=== PATIENT | male | born 1950 | race American Indian/Alaskan Native ===

== ENCOUNTER 2016-09-01 08:18 | Emergency (ER) | payer MEDICARE ==
[2016-09-01 09:29] LABS: Basophils % (Auto) 0.2 % (0.0-1.8); Eosinophils % (Auto) 0.6 % (0.0-4.3); Hematocrit 42.5 % (35.5-45.6); Mean Corpuscular HGB Conc 33 % (32-34); Mean Corpuscular Hemoglobin 31 pg (28-32); Mean Corpuscular Volume 93 fl (84-94); Platelet Count 116 K/mm3 (140-440); Red Blood Count 4.56 M/mm3 (3.65-5.03); Red Cell Distribution Width 13.9 % (13.2-15.2); White Blood Count 7.1 K/mm3 (4.5-11.0)
[2016-09-01 09:35] LABS: Anion Gap 18 mmol/L; Blood Urea Nitrogen 13 mg/dL (9-20); Carbon Dioxide 26 mmol/L (22-30); Chloride 102.4 mmol/L (98-107); Glucose 90 mg/dL (75-100); Potassium 3.6 mmol/L (3.6-5.0); Sodium 143 mmol/L (137-145)
--- NOTE | 2016-09-01 10:18 | XRay Report ---
AP CHEST: HISTORY: Cough, fever AP view of the chest demonstrates a normal mediastinal and cardiac contour with clear lungs and normal bony and soft tissue structures. IMPRESSION: Unremarkable AP chest.
[2016-09-01] MEDS ORDERED: DUONEB 0.5 MG-3 MG/3 ML SOLN IH ONE (10:53)
[2016-09-01] MEDS ORDERED: TYLENOL PO ONE (10:54)
[2016-09-01] MEDS ORDERED: CATAPRES PO ONE (10:54)
[2016-09-01] MEDS ORDERED: APRESOLINE IV ONE (10:56)
--- NOTE | 2016-09-01 10:56 | Emergency Department Report ---
HPI - General Chief Complaint: Dyspnea/Respdistress Time Seen by Provider: 09/01/16 10:44 - HPI HPI: This is a 65-year-old Afro-[place] male who presents to the emergency department via EMS from his ECF with complaint of waking up with chills and shivering and a cough. The patient feels like he has some chest congestion but is unable to cough up anything. He denies any chest pain, nausea, vomiting, shortness of breath. He has a history of COPD but is not oxygen dependent all the time. He also has a history of CVA, dementia, hypertension, schizophrenia. His primary care doctor is Dr. Gene Lopez. He did not take anything and was not given anything for symptoms prior to presentation. No recent travel. ED Past Medical Hx - Past Medical History Previous Medical History?: Yes Hx Hypertension: Yes Hx CVA: Yes Hx Pulmonary Embolism: No Hx Headaches / Migraines: No Hx Seizures: No Hx Psychiatric Treatment: Yes (Schizophrenia) Hx Asthma: No Hx COPD: Yes Hx Tuberculosis: No Hx Dementia: Yes - Surgical History Past Surgical History?: Yes Additional Surgical History: Unknown - Social History Smoking Status: Current Every Day Smoker Substance Use Type: None - Medications Home Medications: Home Medications Medication Instructions Recorded Confirmed Last Taken Type Divalproex ER [Depakote ER] 750 mg PO QHS 07/30/14 09/01/16 11/02/14 History traZODone [Desyrel] 50 mg PO QHS 01/05/15 09/01/16 11/02/14 History Gabapentin [Neurontin] 300 mg PO QPM #30 capsule 03/31/15 09/01/16 Unknown Rx Aspirin [Aspirin BABY CHEW TAB] 81 mg PO QDAY 02/11/16 09/01/16 Unknown History Atenolol [Tenormin] 50 mg PO BID 02/11/16 09/01/16 Unknown History Cetirizine HCl [Allergy] 10 mg PO QDAY 02/11/16 09/01/16 Unknown History Diltiazem [Cardizem] 90 mg PO QDAY 02/11/16 09/01/16 Unknown History Simvastatin [Zocor TAB] 20 mg PO QHS 02/11/16 09/01/16 Unknown History risperiDONE [RisperDAL] 4 mg PO QHS 02/11/16 09/01/16 Unknown History Aspirin EC [Aspirin Enteric Coated 81 mg PO QDAY #30 tablet.dr 02/12/16 Unknown Rx TAB] Benztropine [Cogentin] 1 mg PO QHS tablet 02/12/16 09/01/16 Unknown Rx Lactobacillus Acidophil [Lactinex] 1 each PO TID tab.chew 02/12/16 09/01/16 Unknown Rx amLODIPine [Norvasc] 10 mg PO DAILY tablet 02/12/16 09/01/16 Unknown Rx risperiDONE [RisperDAL] 2 mg PO QHS tablet 02/12/16 09/01/16 Unknown Rx ED Review of Systems ROS: Stated complaint: CHILLS/SHIVERING Other details as noted in HPI Comment: All other systems reviewed and negative Constitutional: chills, fever Eyes: denies: eye pain, eye discharge, vision change ENT: denies: ear pain, throat pain Respiratory: cough. denies: shortness of breath Cardiovascular: denies: chest pain, palpitations Gastrointestinal: denies: abdominal pain, nausea, diarrhea Genitourinary: denies: urgency, dysuria Musculoskeletal: denies: back pain, joint swelling, arthralgia Skin: denies: rash, lesions Neurological: denies: headache, weakness, paresthesias Physical Exam - Physical Exam Vital Signs: Vital Signs 09/01/16 08:39 Temperature 100.6 F H Pulse Rate 66 Respiratory 18 Rate Blood Pressure 175/101 O2 Sat by Pulse 92 Oximetry Physical Exam: GENERAL: The patient is well-developed well-nourished. HEENT: Normocephalic. Atraumatic. Extraocular motions are intact. Patient has moist mucous membranes. Pupils equal reactive to light bilaterally. Oropharynx is clear without tonsillar hypertrophy, erythema or exudates. NECK: Supple. Trachea is midline. CHEST/LUNGS: Clear to auscultation. No cough heard during examination. There is no respiratory distress noted. HEART/CARDIOVASCULAR: Regular. There is no tachycardia. There is no gallop rub or murmur. ABDOMEN: Abdomen is soft, nontender. Patient has normal bowel sounds. There is no abdominal distention. SKIN: Skin is warm and dry. NEURO: The patient is awake, alert. The patient is cooperative. The patient has no focal neurologic deficits. The patient has normal speech. MUSCULOSKELETAL: There is no tenderness or deformity. There is no limitation range of motion. There is no evidence of acute injury. ED Course Vital Signs 09/01/16 08:39 Temperature 100.6 F H Pulse Rate 66 Respiratory 18 Rate Blood Pressure 175/101 O2 Sat by Pulse 92 Oximetry ED Medical Decision Making - Lab Data Result diagrams: 09/01/16 09:03 09/01/16 09:03 - Radiology Data Radiology results: image reviewed interpreted by me: Chest x-ray did not show any acute process. Heart is normal shape and size. No effusions. No pneumothorax. No signs of pneumonia seen. - Medical Decision Making 65-year-old male presents with complaint of some chills and shivering since this morning. He does present with a low-grade fever. He complains of a cough. A chest x-ray was done that does not show any signs of pneumonia or any acute process. He was checked for influenza but was negative for both a and B. Urinalysis does not show any urinary tract infection. The rest the patient's labs are mostly unremarkable. Patient most likely has a viral syndrome. He presents with elevated blood pressure but it came down with out any antihypertensives to a more reasonable level. Patient was reevaluated multiple times over multiple hours and appears stable for discharge home. He will be encouraged to follow up with PCP and return to the ER with any worsening of symptoms or any acute distress. - Differential Diagnosis influenza, viral syndrome, pneumonia, UTI Critical Care Time: No Critical care attestation.: If time is entered above; I have spent that time in minutes in the direct care of this critically ill patient, excluding procedure time. ED Disposition Clinical Impression: Viral syndrome, HTN (hypertension), benign Disposition: DISCHARGED TO HOME OR SELFCARE Is pt being admited?: No Condition: Stable Instructions: Viral Syndrome (ED), Hypertension (ED) Additional Instructions: Please follow-up with your primary care doctor in the next few days. You can use Tylenol every 4 hours and ibuprofen every 6 hours, using weight-based dosing , as needed for fever or discomfort. Return to the emergency department with any worsening of your symptoms or any acute distress. Referrals: PRIMARY CAREMD [Primary Care Provider] - 3-5 Days GENE LOPEZ MD [Staff Physician] - 3-5 Days Time of Disposition: 13:55
[2016-09-01] MEDS ORDERED: TORADOL IV ONE (13:41)
[2016-09-01 13:48] LABS: Bilirubin,Urine NEG (Negative); Blood,Urine NEG (Negative); Ketones,Urine TR mg/dL (Negative); Leukocyte Esterase,Urine NEG (Negative); Nitrite,Urine NEG (Negative); Protein,Urine <15 mg/dL mg/dL (Negative)
[2016-09-01 14:21] VITALS: BP 124/77
== END 2016-09-01 14:00 | disposition home or self-care (01) ==
LOC: ED 08:18
DX: B34.9 Viral infection, unspecified (principal); I10 Essential (primary) hypertension; Z86.73 Personal history of transient ischemic attack (TIA), and cerebral infarction without residual deficits; J44.9 Chronic obstructive pulmonary disease, unspecified; F20.9 Schizophrenia, unspecified; F17.200 Nicotine dependence, unspecified, uncomplicated; F03.90 Unspecified dementia, unspecified severity, without behavioral disturbance, psychotic disturbance, mood disturbance, and anxiety; Z91.018 Allergy to other foods; Z88.8 Allergy status to other drugs, medicaments and biological substances; Z79.82 Long term (current) use of aspirin
CPT/HCPCS: 36415; 71010; 80048; 81001; 85025; 87400; 94640; 96374; 96375; 99284; J1885; J2930

== ENCOUNTER 2016-11-25 18:31 | Inpatient (IN) | payer MEDICARE ==
[2016-11-25 20:05] LABS: Alanine Aminotransferase 6 units/L (7-56); Albumin 4.1 g/dL (3.9-5); Albumin/Globulin Ratio 1.1 %; Alkaline Phosphatase 56 units/L (35-129); Anion Gap 16 mmol/L; BUN/Creatinine Ratio 13.33; Blood Urea Nitrogen 16 mg/dL (9-20); Calcium 8.7 mg/dL (8.4-10.2); Carbon Dioxide 29 mmol/L (22-30); Chloride 99.2 mmol/L (98-107); Glucose 82 mg/dL (75-100); Potassium 3.1 mmol/L (3.6-5.0); Sodium 141 mmol/L (137-145); Total Protein 7.8 g/dL (6.3-8.2)
--- NOTE | 2016-11-25 20:46 | Cat Scan Report ---
FINAL REPORT EXAM: CT HEAD/BRAIN WO CON HISTORY: AMS TECHNIQUE: CT imaging is acquired through the brain without contrast. Transaxial reformations are provided. PRIORS: None. FINDINGS: Ventricles and CSF spaces are proportionately enlarged, consistent with parenchymal atrophy. Scattered deep and subcortical white matter hypodense foci are confluent in some areas and are compatible with microvascular angiopathy. No acute intracranial hemorrhage or mass effect. Calvarium and superficial scalp are intact. No significant abnormality involving the imaged paranasal sinuses or mastoid air cells. IMPRESSION: No acute intracranial abnormality. There are chronic sequela of atrophy and microvascular angiopathy.
[2016-11-25 21:08] LABS: Urine Drugs of Abuse Note Disclamer
--- NOTE | 2016-11-25 21:21 | Emergency Department Report ---
ED Altered Mental Status HPI - General Chief Complaint: Altered Mental Status Stated Complaint: AMS Time Seen by Provider: 11/25/16 20:17 Source: patient, EMS, old records reviewed (neg stress test 01/2016, last echo 2014) Mode of arrival: Stretcher Limitations: Other - History of Present Illness Initial Comments: 65-year-old male with a past medical history schizophrenia, COPD, dementia, and hypertension presents to the hospital complains of episode of unresponsiveness at the care home in which he resides. Patient cannot recall what happened only states that he suffers from ongoing right arm and right leg pain from elbow below and knee below and that the pain has spontaneously improved since being in the ED. Per EMS at approximately 17:50 patient slumped over at the care home. Initially there was no palpable peripheral pulse. Heart rate was sinus bradycardia rate 49 at the scene. Patient vomited times one in route. Patient responsive alert to person and time upon arrival to ED. Patient denied any headache, chest pain, shortness of breath, abdominal pain, or focal weakness /numbness. - Related Data Home Medications Medication Instructions Recorded Confirmed Last Taken Divalproex ER [Depakote ER] 750 mg PO QHS 07/30/14 09/01/16 11/02/14 traZODone [Desyrel] 50 mg PO QHS 01/05/15 09/01/16 11/02/14 Aspirin [Aspirin BABY CHEW TAB] 81 mg PO QDAY 02/11/16 09/01/16 Unknown Atenolol [Tenormin] 50 mg PO BID 02/11/16 09/01/16 Unknown Cetirizine HCl [Allergy] 10 mg PO QDAY 02/11/16 09/01/16 Unknown Diltiazem [Cardizem] 90 mg PO QDAY 02/11/16 09/01/16 Unknown Simvastatin [Zocor TAB] 20 mg PO QHS 02/11/16 09/01/16 Unknown risperiDONE [RisperDAL] 4 mg PO QHS 02/11/16 09/01/16 Unknown Previous Rx's Medication Instructions Recorded Last Taken Type Gabapentin [Neurontin] 300 mg PO QPM #30 capsule 03/31/15 Unknown Rx Aspirin EC [Aspirin Enteric Coated 81 mg PO QDAY #30 tablet. 02/12/16 Unknown Rx TAB] Benztropine [Cogentin] 1 mg PO QHS tablet 02/12/16 Unknown Rx Lactobacillus Acidophil [Lactinex] 1 each PO TID tab.chew 02/12/16 Unknown Rx amLODIPine [Norvasc] 10 mg PO DAILY tablet 02/12/16 Unknown Rx risperiDONE [RisperDAL] 2 mg PO QHS tablet 02/12/16 Unknown Rx Allergies Allergy/AdvReac Type Severity Reaction Status Date / Time banana Allergy Unknown Verified 07/30/14 18:56 fluphenazine enanthate Allergy Unknown Verified 07/30/14 18:56 [From Prolixin] fluphenazine HCl Allergy Unknown Verified 07/30/14 18:56 [From Prolixin] ED Review of Systems ROS: Stated complaint: AMS Other details as noted in HPI Comment: All other systems reviewed and negative Other: Constitutional: No fevers chills Eyes: No eye pain visual changes ENT: No ear pain or throat pain Neck: Denies pain Respiratory: Denies cough wheezing shortness of breath Cardiovascular: Denies chest pain, palpitation GI: Denies abdominal pain, diarrhea : Denies dysuria Musculoskeletal: Denies back pain, Skin: Denies rash, lesions, erythema Neurologic: Denies headache, numbness, weakness Psychiatric: Denies suicidal ideation, hallucinations ED Past Medical Hx - Past Medical History Previous Medical History?: Yes Hx Hypertension: Yes Hx CVA: Yes Hx Pulmonary Embolism: No Hx Headaches / Migraines: No Hx Seizures: No Hx Psychiatric Treatment: Yes (Schizophrenia) Hx Asthma: No Hx COPD: Yes Hx Tuberculosis: No Hx Dementia: Yes - Surgical History Past Surgical History?: Yes Additional Surgical History: Unknown - Social History Smoking Status: Current Every Day Smoker Substance Use Type: None - Medications Home Medications: Home Medications Medication Instructions Recorded Confirmed Last Taken Type Divalproex ER [Depakote ER] 750 mg PO QHS 07/30/14 09/01/16 11/02/14 History traZODone [Desyrel] 50 mg PO QHS 01/05/15 09/01/16 11/02/14 History Gabapentin [Neurontin] 300 mg PO QPM #30 capsule 03/31/15 09/01/16 Unknown Rx Aspirin [Aspirin BABY CHEW TAB] 81 mg PO QDAY 02/11/16 09/01/16 Unknown History Atenolol [Tenormin] 50 mg PO BID 02/11/16 09/01/16 Unknown History Cetirizine HCl [Allergy] 10 mg PO QDAY 02/11/16 09/01/16 Unknown History Diltiazem [Cardizem] 90 mg PO QDAY 02/11/16 09/01/16 Unknown History Simvastatin [Zocor TAB] 20 mg PO QHS 02/11/16 09/01/16 Unknown History risperiDONE [RisperDAL] 4 mg PO QHS 02/11/16 09/01/16 Unknown History Aspirin EC [Aspirin Enteric Coated 81 mg PO QDAY #30 tablet.dr 02/12/16 Unknown Rx TAB] Benztropine [Cogentin] 1 mg PO QHS tablet 02/12/16 09/01/16 Unknown Rx Lactobacillus Acidophil [Lactinex] 1 each PO TID tab.chew 02/12/16 09/01/16 Unknown Rx amLODIPine [Norvasc] 10 mg PO DAILY tablet 02/12/16 09/01/16 Unknown Rx risperiDONE [RisperDAL] 2 mg PO QHS tablet 02/12/16 09/01/16 Unknown Rx ED Physical Exam - General Limitations: Other - Other Other exam information: General: No limitations, patient is alert in no acute distress Head exam: Atraumatic, normocephalic Eyes exam: Normal appearance, pupils equal reactive to light, extraocular movements intact ENT: Moist mucous membrane, normal oropharynx Neck exam: Normal inspection, full range of motion, no meningismus nontender Respiratory exam: Clear to auscultation bilateral, no wheezes, rales, crackles Cardiovascular: Normal rate and rhythm, normal heart sounds Abdomen: Soft, nondistended, and nontender, with normal bowel sounds, no rebound, or guarding Extremity: Full range of motion normal inspection no deformity Back: Normal Inspection, full range of motion, no tenderness Neurologic: Alert, oriented x3, cranial nerves intact, no motor or sensory deficit Psychiatric: normal affect, normal mood Skin: Warm, dry, intact ED Course Vital Signs 11/25/16 11/25/16 11/25/16 18:32 18:40 18:42 Temperature 98.5 F Pulse Rate 49 L 50 L Respiratory 16 18 Rate Blood Pressure 156/85 Blood Pressure 40/15 [Left] Blood Pressure 156/85 [Right] O2 Sat by Pulse 93 95 95 Oximetry 07/11/0611/25/16 11/25/16 18:51 18:52 19:00 Temperature Pulse Rate 54 L 56 L Respiratory 13 18 20 Rate Blood Pressure 156/102 163/92 Blood Pressure [Left] Blood Pressure 162/88 [Right] O2 Sat by Pulse 95 94 94 Oximetry 11/25/16 11/25/16 11/25/16 19:11 19:15 19:21 Temperature Pulse Rate 51 L Respiratory 14 Rate Blood Pressure 163/92 128/92 Blood Pressure [Left] Blood Pressure 128/92 [Right] O2 Sat by Pulse 96 98 95 Oximetry 11/25/16 11/25/16 11/25/16 19:31 19:41 19:51 Temperature Pulse Rate 54 L 56 L 60 Respiratory 13 12 10 L Rate Blood Pressure 187/92 187/92 151/104 Blood Pressure [Left] Blood Pressure [Right] O2 Sat by Pulse 96 94 Oximetry 11/25/16 11/25/16 11/25/16 20:01 20:11 20:30 Temperature Pulse Rate 59 L 62 54 L Respiratory 15 15 Rate Blood Pressure 151/104 151/104 Blood Pressure [Left] Blood Pressure 169/71 [Right] O2 Sat by Pulse 96 Oximetry 11/25/16 11/25/16 11/25/16 20:39 20:41 20:52 Temperature Pulse Rate Respiratory Rate Blood Pressure 166/98 166/98 Blood Pressure [Left] Blood Pressure [Right] O2 Sat by Pulse 95 96 95 Oximetry - Lab Data Result diagrams: 11/25/16 21:00 11/25/16 19:24 Lab Results 11/25/16 11/25/16 11/25/16 Range/Units 19:24 19:24 19:24 WBC (4.5-11.0) K/mm3 RBC (3.65-5.03) M/mm3 Hgb (11.8-15.2) gm/dl Hct (35.5-45.6) % MCV (84-94) fl MCH (28-32) pg MCHC (32-34) % RDW (13.2-15.2) % Plt Count (140-440) K/mm3 Lymph % (Auto) (13.4-35.0) % [place] % (Auto) (0.0-7.3) % Eos % (Auto) (0.0-4.3) % Baso % (Auto) (0.0-1.8) % Lymph # (1.2-5.4) K/mm3 [place] # (0.0-0.8) K/mm3 Eos # (0.0-0.4) K/mm3 Baso # (0.0-0.1) K/mm3 Seg Neutrophils % (40.0-70.0) % Seg Neutrophils # (1.8-7.7) K/mm3 Sodium 141 (137-145) mmol/L Potassium 3.1 L (3.6-5.0) mmol/L Chloride 99.2 (98-107) mmol/L Carbon Dioxide 29 (22-30) mmol/L Anion Gap 16 mmol/L BUN 16 (9-20) mg/dL Creatinine 1.2 (0.8-1.5) mg/dL Estimated GFR > 60 ml/min BUN/Creatinine Ratio 13.33 % Glucose 82 (75-100) mg/dL Lactic Acid 0.90 (0.7-2.0) mmol/L Calcium 8.7 (8.4-10.2) mg/dL Magnesium 1.90 (1.7-2.3) mg/dL Total Bilirubin 0.70 (0.1-1.2) mg/dL AST 17 (5-40) units/L ALT 6 L (7-56) units/L Alkaline Phosphatase 56 (35-129) units/L Total Protein 7.8 (6.3-8.2) g/dL Albumin 4.1 (3.9-5) g/dL Albumin/Globulin Ratio 1.1 % TSH 1.000 (0.270-4.200) mlU/mL Urine Color (Yellow) Urine Turbidity (Clear) Urine pH (5.0-7.0) Ur Specific [place] (1.003-1.030) Urine Protein (Negative) mg/dL Urine Glucose (UA) (Negative) mg/dL Urine Ketones (Negative) mg/dL Urine Blood (Negative) Urine Nitrite (Negative) Urine Bilirubin (Negative) Urine Urobilinogen (<2.0) mg/dL Ur Leukocyte Esterase (Negative) Urine WBC (Auto) (0.0-6.0) /HPF Urine RBC (Auto) (0.0-6.0) /HPF Urine Bacteria (Auto) (Negative) /HPF Salicylates (2.8-20.0) mg/dL Urine Opiates Screen Urine Methadone Screen Acetaminophen (10.0-30.0) ug/mL Ur Barbiturates Screen Ur Phencyclidine Scrn Ur Amphetamines Screen U Benzodiazepines Scrn Urine Cocaine Screen U Marijuana (THC) Screen Drugs of Abuse Note Plasma/Serum Alcohol (0-0.07) gm% 11/25/16 11/25/16 11/25/16 Range/Units 19:24 19:24 19:24 WBC (4.5-11.0) K/mm3 RBC (3.65-5.03) M/mm3 Hgb (11.8-15.2) gm/dl Hct (35.5-45.6) % MCV (84-94) fl MCH (28-32) pg MCHC (32-34) % RDW (13.2-15.2) % Plt Count (140-440) K/mm3 Lymph % (Auto) (13.4-35.0) % [place] % (Auto) (0.0-7.3) % Eos % (Auto) (0.0-4.3) % Baso % (Auto) (0.0-1.8) % Lymph # (1.2-5.4) K/mm3 [place] # (0.0-0.8) K/mm3 Eos # (0.0-0.4) K/mm3 Baso # (0.0-0.1) K/mm3 Seg Neutrophils % (40.0-70.0) % Seg Neutrophils # (1.8-7.7) K/mm3 Sodium (137-145) mmol/L Potassium (3.6-5.0) mmol/L Chloride (98-107) mmol/L Carbon Dioxide (22-30) mmol/L Anion Gap mmol/L BUN (9-20) mg/dL Creatinine (0.8-1.5) mg/dL Estimated GFR ml/min BUN/Creatinine Ratio % Glucose (75-100) mg/dL Lactic Acid (0.7-2.0) mmol/L Calcium (8.4-10.2) mg/dL Magnesium (1.7-2.3) mg/dL Total Bilirubin (0.1-1.2) mg/dL AST (5-40) units/L ALT (7-56) units/L Alkaline Phosphatase (35-129) units/L Total Protein (6.3-8.2) g/dL Albumin (3.9-5) g/dL Albumin/Globulin Ratio % TSH (0.270-4.200) mlU/mL Urine Color (Yellow) Urine Turbidity (Clear) Urine pH (5.0-7.0) Ur Specific [place] (1.003-1.030) Urine Protein (Negative) mg/dL Urine Glucose (UA) (Negative) mg/dL Urine Ketones (Negative) mg/dL Urine Blood (Negative) Urine Nitrite (Negative) Urine Bilirubin (Negative) Urine Urobilinogen (<2.0) mg/dL Ur Leukocyte Esterase (Negative) Urine WBC (Auto) (0.0-6.0) /HPF Urine RBC (Auto) (0.0-6.0) /HPF Urine Bacteria (Auto) (Negative) /HPF Salicylates < 0.3 L (2.8-20.0) mg/dL Urine Opiates Screen Urine Methadone Screen Acetaminophen < 15.0 (10.0-30.0) ug/mL Ur Barbiturates Screen Ur Phencyclidine Scrn Ur Amphetamines Screen U Benzodiazepines Scrn Urine Cocaine Screen U Marijuana (THC) Screen Drugs of Abuse Note Plasma/Serum Alcohol < 0.01 (0-0.07) gm% 11/25/16 11/25/16 11/25/16 Range/Units 20:00 20:00 21:00 WBC 3.7 L (4.5-11.0) K/mm3 RBC 4.51 (3.65-5.03) M/mm3 Hgb 13.9 (11.8-15.2) gm/dl Hct 41.7 (35.5-45.6) % MCV 93 (84-94) fl MCH 31 (28-32) pg MCHC 33 (32-34) % RDW 14.7 (13.2-15.2) % Plt Count 118 L (140-440) K/mm3 Lymph % (Auto) 31.7 (13.4-35.0) % [place] % (Auto) 9.0 H (0.0-7.3) % Eos % (Auto) 2.1 (0.0-4.3) % Baso % (Auto) 0.4 (0.0-1.8) % Lymph # 1.2 (1.2-5.4) K/mm3 [place] # 0.3 (0.0-0.8) K/mm3 Eos # 0.1 (0.0-0.4) K/mm3 Baso # 0.0 (0.0-0.1) K/mm3 Seg Neutrophils % 56.8 (40.0-70.0) % Seg Neutrophils # 2.1 (1.8-7.7) K/mm3 Sodium (137-145) mmol/L Potassium (3.6-5.0) mmol/L Chloride (98-107) mmol/L Carbon Dioxide (22-30) mmol/L Anion Gap mmol/L BUN (9-20) mg/dL Creatinine (0.8-1.5) mg/dL Estimated GFR ml/min BUN/Creatinine Ratio % Glucose (75-100) mg/dL Lactic Acid (0.7-2.0) mmol/L Calcium (8.4-10.2) mg/dL Magnesium (1.7-2.3) mg/dL Total Bilirubin (0.1-1.2) mg/dL AST (5-40) units/L ALT (7-56) units/L Alkaline Phosphatase (35-129) units/L Total Protein (6.3-8.2) g/dL Albumin (3.9-5) g/dL Albumin/Globulin Ratio % TSH (0.270-4.200) mlU/mL Urine Color Colorless (Yellow) Urine Turbidity Clear (Clear) Urine pH 8.0 H (5.0-7.0) Ur Specific [place] 1.005 (1.003-1.030) Urine Protein <15 mg/dl (Negative) mg/dL Urine Glucose (UA) Neg (Negative) mg/dL Urine Ketones Neg (Negative) mg/dL Urine Blood Neg (Negative) Urine Nitrite Neg (Negative) Urine Bilirubin Neg (Negative) Urine Urobilinogen < 2.0 (<2.0) mg/dL Ur Leukocyte Esterase Neg (Negative) Urine WBC (Auto) 0.0 (0.0-6.0) /HPF Urine RBC (Auto) 1.0 (0.0-6.0) /HPF Urine Bacteria (Auto) 1+ (Negative) /HPF Salicylates (2.8-20.0) mg/dL Urine Opiates Screen Presumptive negative Urine Methadone Screen Presumptive negative Acetaminophen (10.0-30.0) ug/mL Ur Barbiturates Screen Presumptive negative Ur Phencyclidine Scrn Presumptive negative Ur Amphetamines Screen Presumptive negative U Benzodiazepines Scrn Presumptive negative Urine Cocaine Screen Presumptive negative U Marijuana (THC) Screen Presumptive negative Drugs of Abuse Note Disclamer Plasma/Serum Alcohol (0-0.07) gm% - EKG Data -: EKG Interpreted by Me (sinus bradycardia rate 56, LVH, nonspecific T-wave abnormality.) When compared to previous EKG there are: no significant change (compared to previous 02/12/2016) - Radiology Data Radiology results: report reviewed (ct head naf), image reviewed (cxr: naf) - Medical Decision Making Plan admit patient to hospital for further monitoring due to unresponsive episode Meds in the ED: Potassium chloride Hospitalist informed - Differential Diagnosis vasovagal, arrhythmia, ND, ICH, syncope Critical Care Time: No Critical care attestation.: If time is entered above; I have spent that time in minutes in the direct care of this critically ill patient, excluding procedure time. ED Disposition Clinical Impression: Schizophrenia, Altered mental status, Hypokalemia, Thrombocytopenia, HTN ( hypertension) Disposition: OP ADMIT IP TO THIS HOSP Is pt being admited?: Yes Condition: Stable Instructions: Hypertension (ED) Time of Disposition: 21:24 (Dr Cheatham/hosp)
[2016-11-25] MEDS ORDERED: K-DUR PO ONE (21:22)
[2016-11-25 21:26] LABS: Basophils % (Auto) 0.4 % (0.0-1.8); Eosinophils % (Auto) 2.1 % (0.0-4.3); Hematocrit 41.7 % (35.5-45.6); Hemoglobin 13.9 gm/dl (11.8-15.2); Mean Corpuscular HGB Conc 33 % (32-34); Mean Corpuscular Hemoglobin 31 pg (28-32); Mean Corpuscular Volume 93 fl (84-94); Platelet Count 118 K/mm3 (140-440); Red Blood Count 4.51 M/mm3 (3.65-5.03); Red Cell Distribution Width 14.7 % (13.2-15.2); White Blood Count 3.7 K/mm3 (4.5-11.0)
[2016-11-25 21:48] LABS: Bacteria,Urine 1+ /HPF (Negative); Bilirubin,Urine NEG (Negative); Blood,Urine NEG (Negative); Ketones,Urine NEG (Negative); Leukocyte Esterase,Urine NEG (Negative); Nitrite,Urine NEG (Negative); Protein,Urine <15 mg/dL mg/dL (Negative); Urobilinogen,Urine < 2.0 mg/dL (<2.0)
[2016-11-25] MEDS ORDERED: DULCOLAX PR PRN (22:51)
[2016-11-25] MEDS ORDERED: MILK OF MAGNESIA PO PRN (22:51)
[2016-11-25] MEDS ORDERED: PROVENTIL IH PRN (22:51)
[2016-11-25] MEDS ORDERED: TYLENOL PO PRN (22:51)
[2016-11-25] MEDS ORDERED: ZOFRAN IV PRN (22:51)
--- NOTE | 2016-11-25 22:57 | History and Physical Report ---
History of Present Illness Date of examination: 11/25/16 History of present illness: History per the triage sheet. This is a 65-year-old man with a history of hypertension, COPD, schizophrenia, dementia, CVA was sent from the senior living because he was noted to be confused, they found him slumped over at the table. Patient does not recall events Patient denies chest pain, palpitation, shortness of breath, cough, abdominal pain, hematochezia, dysuria, frequency, focal weakness, dysarthria, fever chills , polydipsia polyuria, hot or cold intolerance, easy bruisability, or rash or bleeding from mucosal membrane, rhinorrhea, epistaxis, earache, tinnitus, blurry vision, eye discharge, anxiety, depression. Other review of systems negative PAST SURGICAL HISTORY: None SOCIAL HISTORY: Smokes 6 cigarettes day no alcohol or drugs FAMILY HISTORY: Hypertension Medications and Allergies Allergies Allergy/AdvReac Type Severity Reaction Status Date / Time banana Allergy Unknown Verified 07/30/14 18:56 fluphenazine enanthate Allergy Unknown Verified 07/30/14 18:56 [From Prolixin] fluphenazine HCl Allergy Unknown Verified 07/30/14 18:56 [From Prolixin] Home Medications Medication Instructions Recorded Confirmed Last Taken Type RX: Divalproex ER [Depakote ER] 750 mg PO QHS 07/30/14 09/01/16 11/02/14 History RX: traZODone [Desyrel] 50 mg PO QHS 01/05/15 09/01/16 11/02/14 History RX: Gabapentin [Neurontin] 300 mg PO QPM #30 capsule 03/31/15 09/01/16 Unknown Rx RX: Aspirin [Aspirin BABY CHEW TAB] 81 mg PO QDAY 02/11/16 09/01/16 Unknown History RX: Atenolol [Tenormin] 50 mg PO BID 02/11/16 09/01/16 Unknown History RX: Cetirizine HCl [Allergy] 10 mg PO QDAY 02/11/16 09/01/16 Unknown History RX: Diltiazem [Cardizem] 90 mg PO QDAY 02/11/16 09/01/16 Unknown History RX: Simvastatin [Zocor TAB] 20 mg PO QHS 02/11/16 09/01/16 Unknown History RX: risperiDONE [RisperDAL] 4 mg PO QHS 02/11/16 09/01/16 Unknown History RX: Aspirin EC [Aspirin Enteric 81 mg PO QDAY #30 tablet.dr 02/12/16 09/01/16 Unknown Rx Coated TAB] RX: Benztropine [Cogentin] 1 mg PO QHS tablet 02/12/16 09/01/16 Unknown Rx RX: Lactobacillus Acidophil 1 each PO TID tab.chew 02/12/16 09/01/16 Unknown Rx [Lactinex] RX: amLODIPine [Norvasc] 10 mg PO DAILY tablet 02/12/16 09/01/16 Unknown Rx RX: risperiDONE [RisperDAL] 2 mg PO QHS tablet 02/12/16 09/01/16 Unknown Rx Exam - Physical Exam Narrative exam: Gen. appearance: Patient lying in bed, no apparent distress HEENT: Normocephalic, atraumatic, pupils equally round and reactive to light, extraocular movement intact, and no sclericterus,. No JVD or thyromegaly or nodule,neck supple, no carotid bruit ,mucous membranes moist, no exudate or erythema Heart: S1, S2, regular rate and rhythm Lungs: Clear to auscultation bilaterally, breathing comfortable Abdomen: Positive bowel sounds, nontender, nondistended, no organomegaly Extremity: No edema, cyanosis, clubbing Skin: No rash, nodules, warm, dry Neuro: Oriented 3, cranial nerves II-12 intact, speech is fluent, motor and sensory intact - Constitutional Vitals: Temp Pulse Resp BP Pulse Ox 98.5 F 54 L 15 159/92 96 11/25/16 18:42 11/25/16 20:30 11/25/16 20:11 11/25/16 22:45 11/25/16 22:45 Results - Labs CBC & Chem 7: 11/26/16 04:03 11/26/16 04:03 Labs: Abnormal lab results 11/25/16 11/25/16 11/25/16 Range/Units 19:24 19:24 20:00 WBC (4.5-11.0) K/mm3 Plt Count (140-440) K/mm3 [place] % (Auto) (0.0-7.3) % Potassium 3.1 L (3.6-5.0) mmol/L ALT 6 L (7-56) units/L Urine pH 8.0 H (5.0-7.0) Salicylates < 0.3 L (2.8-20.0) mg/dL 11/25/16 Range/Units 21:00 WBC 3.7 L (4.5-11.0) K/mm3 Plt Count 118 L (140-440) K/mm3 [place] % (Auto) 9.0 H (0.0-7.3) % Potassium (3.6-5.0) mmol/L ALT (7-56) units/L Urine pH (5.0-7.0) Salicylates (2.8-20.0) mg/dL - Imaging and Cardiology EKG: image reviewed CT scan - chest: report reviewed CT Scan - head: report reviewed Assessment and Plan Altered mental status Syncope Hypertension Schizophrenia COPD Admit to medicine Check cardiac enzymes, echo, carotid Doppler, consult cardiology Angina appropriate outpatient medications, start DVT prophylaxis
[2016-11-25 23:51] LABS: Creatine Kinase 145 units/L (55-170); Creatine Kinase MB 1.4 ng/mL (0.0-4.0)
[2016-11-26] MEDS ORDERED: APRESOLINE IV PRN (00:09)
[2016-11-26] MEDS ORDERED: NACL ONE (00:51)
--- NOTE | 2016-11-26 02:18 | Cat Scan Report ---
FINAL REPORT EXAM: CT ANGIO CHEST HISTORY: syncope COMPARISON: None available. TECHNIQUE: Contiguous axial images were obtained. Additional sagittal and coronal reformatted images were obtained. Administration of IV contrast given per institution protocol. Images submitted for interpretation. 100 cc Omnipaque [id number]. FINDINGS: Heart normal in size. Ascending thoracic aorta measures 3.2 centimeters in diameter within normal limits. Suboptimal opacification of the descending thoracic aorta for evaluation of intimal flap. No dissection within the ascending thoracic aorta or aortic arch. Minimal calcified plaque at the aortic arch. No pulmonary embolus. No pathologically enlarged intrathoracic or axillary lymph nodes. Mild bronchial wall thickening concerning for bronchitis which may be acute or chronic. Moderate centrilobular emphysema. No dense airspace consolidation. Trace left-sided pleural effusion. Visualized upper abdomen is grossly unremarkable. IMPRESSION: No pulmonary embolus. Thoracic aorta is normal in caliber. No dissection within the ascending thoracic aorta. Descending thoracic aorta is not well opacified for evaluation of dissection. Cystic changes of the lungs and bronchial wall thickening compatible with moderate COPD. No dense airspace consolidation to suggest active infection. Trace left-sided pleural effusion.
[2016-11-26 04:49] LABS: Basophils % (Auto) 0.8 % (0.0-1.8); Eosinophils % (Auto) 2.6 % (0.0-4.3); Hematocrit 40.6 % (35.5-45.6); Hemoglobin 13.7 gm/dl (11.8-15.2); Mean Corpuscular HGB Conc 34 % (32-34); Mean Corpuscular Hemoglobin 31 pg (28-32); Mean Corpuscular Volume 91 fl (84-94); Platelet Count 126 K/mm3 (140-440); Red Blood Count 4.47 M/mm3 (3.65-5.03); Red Cell Distribution Width 14.2 % (13.2-15.2); White Blood Count 4.7 K/mm3 (4.5-11.0)
[2016-11-26 05:10] LABS: Blood Urea Nitrogen 13 mg/dL (9-20); Calcium 8.7 mg/dL (8.4-10.2); Carbon Dioxide 22 mmol/L (22-30); Chloride 99.6 mmol/L (98-107); Creatine Kinase MB 1.4 ng/mL (0.0-4.0); Glucose 112 mg/dL (75-100); Sodium 136 mmol/L (137-145)
[2016-11-26 05:11] LABS: Creatine Kinase 149 units/L (55-170)
[2016-11-26 05:40] LABS: Anion Gap 20 mmol/L; Potassium 5.1 mmol/L (3.6-5.0)
--- NOTE | 2016-11-26 07:53 | XRay Report ---
Single view chest: Compared to 08/22/16. History: AMS. Findings: Normal cardiomediastinal silhouette. Trachea is midline. No consolidation, pneumothorax or pleural effusion. Impression: No acute cardiopulmonary findings.
--- NOTE | 2016-11-26 08:31 | Progress Note ---
<IKE MCGOWAN - Last Filed: 12/07/16 15:08> Assessment and Plan Assessment and plan: ASSESSMENT/PLAN Altered mental status Resolved, Patient alert and oriented to person,place and time. Treat the underline cause Syncope CT of the head shows No acute intracranial abnormality. There are chronic sequela of atrophy and microvascular angiopathy CTA shows no pulmonary embolus X-ray normal IV fluid hydration ordered Echocardiogram pending VL Carotid duplex pending Cardiology consulted COPD Started on Duoneb Q8H Frequent respiratory physical assessment Hypertension We will continue home antihypertensive medicine Schizophrenia We will continue antipsychotic medicines Hyperkalemia Slightly elevated potassium level 5.1 We will repeat BMP DVT prophylaxis Lovenox History Interval history: Patient alert oriented to person, place and time. Patient verbalized feeling better. He denies chest pain, lightheadedness, dizziness, nausea and vomiting. Hospitalist Physical - Constitutional Vitals: Temp Pulse Resp BP Pulse Ox 97.3 F L 48 L 18 139/93 100 11/26/16 07:20 11/26/16 07:20 11/26/16 07:20 11/26/16 07:20 11/26/16 07:20 General appearance: Present: mild distress, other (on 2LNC, no acute distress noted) - EENT Eyes: Present: PERRL ENT: hearing intact - Neck Neck: Present: supple - Respiratory Respiratory effort: normal Respiratory: bilateral: wheezing - Cardiovascular Heart rate: 54 (bradycardia) Heart Sounds: Present: S1 & S2 - Extremities Extremities: no ischemia Peripheral Pulses: within normal limits - Abdominal General gastrointestinal: soft, non-tender - Integumentary Integumentary: Present: clear, warm, dry - Psychiatric Psychiatric: appropriate mood/affect - Neurologic Neurologic: CNII-XII intact - Allied Health Allied health notes reviewed: nursing Results - Labs CBC & Chem 7: 11/26/16 04:03 11/26/16 04:03 Labs: Laboratory Last Values WBC 4.7 K/mm3 (4.5-11.0) 11/26/16 04:03 RBC 4.47 M/mm3 (3.65-5.03) 11/26/16 04:03 Hgb 13.7 gm/dl (11.8-15.2) 11/26/16 04:03 Hct 40.6 % (35.5-45.6) 11/26/16 04:03 MCV 91 fl (84-94) 11/26/16 04:03 MCH 31 pg (28-32) 11/26/16 04:03 MCHC 34 % (32-34) 11/26/16 04:03 RDW 14.2 % (13.2-15.2) 11/26/16 04:03 Plt Count 126 K/mm3 (140-440) L 11/26/16 04:03 Lymph % (Auto) 47.8 % (13.4-35.0) H 11/26/16 04:03 [place] % (Auto) 9.8 % (0.0-7.3) H 11/26/16 04:03 Eos % (Auto) 2.6 % (0.0-4.3) 11/26/16 04:03 Baso % (Auto) 0.8 % (0.0-1.8) 11/26/16 04:03 Lymph # 2.2 K/mm3 (1.2-5.4) 11/26/16 04:03 [place] # 0.5 K/mm3 (0.0-0.8) 11/26/16 04:03 Eos # 0.1 K/mm3 (0.0-0.4) 11/26/16 04:03 Baso # 0.0 K/mm3 (0.0-0.1) 11/26/16 04:03 Seg Neutrophils % 39.0 % (40.0-70.0) L 11/26/16 04:03 Seg Neutrophils # 1.8 K/mm3 (1.8-7.7) 11/26/16 04:03 D-Dimer 674.70 ng/mlDDU (0-234) H 11/25/16 23:14 Sodium 136 mmol/L (137-145) L 11/26/16 04:03 Potassium 5.1 mmol/L (3.6-5.0) H D 11/26/16 04:03 Chloride 99.6 mmol/L (98-107) 11/26/16 04:03 Carbon Dioxide 22 mmol/L (22-30) D 11/26/16 04:03 Anion Gap 20 mmol/L 11/26/16 04:03 BUN 13 mg/dL (9-20) 11/26/16 04:03 Creatinine 1.0 mg/dL (0.8-1.5) 11/26/16 04:03 Estimated GFR > 60 ml/min 11/26/16 04:03 BUN/Creatinine Ratio 13.00 % 11/26/16 04:03 Glucose 112 mg/dL (75-100) H 11/26/16 04:03 Lactic Acid 1.30 mmol/L (0.7-2.0) 11/25/16 22:54 Calcium 8.7 mg/dL (8.4-10.2) 11/26/16 04:03 Magnesium 1.90 mg/dL (1.7-2.3) 11/25/16 19:24 Total Bilirubin 0.70 mg/dL (0.1-1.2) 11/25/16 19:24 AST 17 units/L (5-40) 11/25/16 19:24 ALT 6 units/L (7-56) L 11/25/16 19:24 Alkaline Phosphatase 56 units/L (35-129) 11/25/16 19:24 Total Creatine Kinase 149 units/L (55-170) 11/26/16 04:03 CK-MB (CK-2) 1.4 ng/mL (0.0-4.0) 11/26/16 04:03 CK-MB (CK-2) Rel Index 0.9 (0-4) 11/26/16 04:03 Troponin T < 0.010 ng/mL (0.00-0.029) 11/26/16 04:03 Total Protein 7.8 g/dL (6.3-8.2) 11/25/16 19:24 Albumin 4.1 g/dL (3.9-5) 11/25/16 19:24 Albumin/Globulin Ratio 1.1 % 11/25/16 19:24 TSH 1.000 mlU/mL (0.270-4.200) 11/25/16 19:24 Urine Color Colorless (Yellow) 11/25/16 20:00 Urine Turbidity Clear (Clear) 11/25/16 20:00 Urine pH 8.0 (5.0-7.0) H 11/25/16 20:00 Ur Specific [place] 1.005 (1.003-1.030) 11/25/16 20:00 Urine Protein <15 mg/dl mg/dL (Negative) 11/25/16 20:00 Urine Glucose (UA) Neg mg/dL (Negative) 11/25/16 20:00 Urine Ketones Neg mg/dL (Negative) 11/25/16 20:00 Urine Blood Neg (Negative) 11/25/16 20:00 Urine Nitrite Neg (Negative) 11/25/16 20:00 Urine Bilirubin Neg (Negative) 11/25/16 20:00 Urine Urobilinogen < 2.0 mg/dL (<2.0) 11/25/16 20:00 Ur Leukocyte Esterase Neg (Negative) 11/25/16 20:00 Urine WBC (Auto) 0.0 /HPF (0.0-6.0) 11/25/16 20:00 Urine RBC (Auto) 1.0 /HPF (0.0-6.0) 11/25/16 20:00 Urine Bacteria (Auto) 1+ /HPF (Negative) 11/25/16 20:00 Salicylates < 0.3 mg/dL (2.8-20.0) L 11/25/16 19:24 Urine Opiates Screen Presumptive negative 11/25/16 20:00 Urine Methadone Screen Presumptive negative 11/25/16 20:00 Acetaminophen < 15.0 ug/mL (10.0-30.0) 11/25/16 19:24 Ur Barbiturates Screen Presumptive negative 11/25/16 20:00 Ur Phencyclidine Scrn Presumptive negative 11/25/16 20:00 Ur Amphetamines Screen Presumptive negative 11/25/16 20:00 U Benzodiazepines Scrn Presumptive negative 11/25/16 20:00 Urine Cocaine Screen Presumptive negative 11/25/16 20:00 U Marijuana (THC) Screen Presumptive negative 11/25/16 20:00 Drugs of Abuse Note Disclamer 11/25/16 20:00 Plasma/Serum Alcohol < 0.01 gm% (0-0.07) 11/25/16 19:24 - Imaging and Cardiology Chest x-ray: image reviewed (no acute cardiopulmonary findings) CT scan - chest: image reviewed (no pulmonary embolus) CT Scan - head: image reviewed (No acute intracranial abnormality. There are chronic sequela of atrophy and microvascular angiopathy) <KATIE MELÉNDEZ - Last Filed: 12/08/16 18:00> History Interval history: I saw and evaluated the patient. I agree with the findings and the plan of care as documented in the Nurse Practitioner's~note, with the following corrections and additions. Hospitalist Physical - Constitutional Vitals: Temp Pulse Resp BP Pulse Ox 97 F L 68 20 168/96 97 11/27/16 18:49 11/27/16 18:49 11/27/16 18:49 11/27/16 18:49 11/27/16 17:07 Results - Labs CBC & Chem 7: 11/26/16 04:03 11/26/16 04:03 Labs: Laboratory Last Values WBC 4.7 K/mm3 (4.5-11.0) 11/26/16 04:03 RBC 4.47 M/mm3 (3.65-5.03) 11/26/16 04:03 Hgb 13.7 gm/dl (11.8-15.2) 11/26/16 04:03 Hct 40.6 % (35.5-45.6) 11/26/16 04:03 MCV 91 fl (84-94) 11/26/16 04:03 MCH 31 pg (28-32) 11/26/16 04:03 MCHC 34 % (32-34) 11/26/16 04:03 RDW 14.2 % (13.2-15.2) 11/26/16 04:03 Plt Count 126 K/mm3 (140-440) L 11/26/16 04:03 Lymph % (Auto) 47.8 % (13.4-35.0) H 11/26/16 04:03 [place] % (Auto) 9.8 % (0.0-7.3) H 11/26/16 04:03 Eos % (Auto) 2.6 % (0.0-4.3) 11/26/16 04:03 Baso % (Auto) 0.8 % (0.0-1.8) 11/26/16 04:03 Lymph # 2.2 K/mm3 (1.2-5.4) 11/26/16 04:03 [place] # 0.5 K/mm3 (0.0-0.8) 11/26/16 04:03 Eos # 0.1 K/mm3 (0.0-0.4) 11/26/16 04:03 Baso # 0.0 K/mm3 (0.0-0.1) 11/26/16 04:03 Seg Neutrophils % 39.0 % (40.0-70.0) L 11/26/16 04:03 Seg Neutrophils # 1.8 K/mm3 (1.8-7.7) 11/26/16 04:03 D-Dimer 674.70 ng/mlDDU (0-234) H 11/25/16 23:14 Sodium 136 mmol/L (137-145) L 11/26/16 04:03 Potassium 5.1 mmol/L (3.6-5.0) H D 11/26/16 04:03 Chloride 99.6 mmol/L (98-107) 11/26/16 04:03 Carbon Dioxide 22 mmol/L (22-30) D 11/26/16 04:03 Anion Gap 20 mmol/L 11/26/16 04:03 BUN 13 mg/dL (9-20) 11/26/16 04:03 Creatinine 1.0 mg/dL (0.8-1.5) 11/26/16 04:03 Estimated GFR > 60 ml/min 11/26/16 04:03 BUN/Creatinine Ratio 13.00 % 11/26/16 04:03 Glucose 112 mg/dL (75-100) H 11/26/16 04:03 Lactic Acid 1.30 mmol/L (0.7-2.0) 11/25/16 22:54 Calcium 8.7 mg/dL (8.4-10.2) 11/26/16 04:03 Magnesium 1.90 mg/dL (1.7-2.3) 11/25/16 19:24 Total Bilirubin 0.70 mg/dL (0.1-1.2) 11/25/16 19:24 AST 17 units/L (5-40) 11/25/16 19:24 ALT 6 units/L (7-56) L 11/25/16 19:24 Alkaline Phosphatase 56 units/L (35-129) 11/25/16 19:24 Total Creatine Kinase 149 units/L (55-170) 11/26/16 04:03 CK-MB (CK-2) 1.4 ng/mL (0.0-4.0) 11/26/16 04:03 CK-MB (CK-2) Rel Index 0.9 (0-4) 11/26/16 04:03 Troponin T < 0.010 ng/mL (0.00-0.029) 11/26/16 04:03 Total Protein 7.8 g/dL (6.3-8.2) 11/25/16 19:24 Albumin 4.1 g/dL (3.9-5) 11/25/16 19:24 Albumin/Globulin Ratio 1.1 % 11/25/16 19:24 TSH 1.000 mlU/mL (0.270-4.200) 11/25/16 19:24 Urine Color Colorless (Yellow) 11/25/16 20:00 Urine Turbidity Clear (Clear) 11/25/16 20:00 Urine pH 8.0 (5.0-7.0) H 11/25/16 20:00 Ur Specific [place] 1.005 (1.003-1.030) 11/25/16 20:00 Urine Protein <15 mg/dl mg/dL (Negative) 11/25/16 20:00 Urine Glucose (UA) Neg mg/dL (Negative) 11/25/16 20:00 Urine Ketones Neg mg/dL (Negative) 11/25/16 20:00 Urine Blood Neg (Negative) 11/25/16 20:00 Urine Nitrite Neg (Negative) 11/25/16 20:00 Urine Bilirubin Neg (Negative) 11/25/16 20:00 Urine Urobilinogen < 2.0 mg/dL (<2.0) 11/25/16 20:00 Ur Leukocyte Esterase Neg (Negative) 11/25/16 20:00 Urine WBC (Auto) 0.0 /HPF (0.0-6.0) 11/25/16 20:00 Urine RBC (Auto) 1.0 /HPF (0.0-6.0) 11/25/16 20:00 Urine Bacteria (Auto) 1+ /HPF (Negative) 11/25/16 20:00 Salicylates < 0.3 mg/dL (2.8-20.0) L 11/25/16 19:24 Urine Opiates Screen Presumptive negative 11/25/16 20:00 Urine Methadone Screen Presumptive negative 11/25/16 20:00 Acetaminophen < 15.0 ug/mL (10.0-30.0) 11/25/16 19:24 Ur Barbiturates Screen Presumptive negative 11/25/16 20:00 Ur Phencyclidine Scrn Presumptive negative 11/25/16 20:00 Ur Amphetamines Screen Presumptive negative 11/25/16 20:00 U Benzodiazepines Scrn Presumptive negative 11/25/16 20:00 Urine Cocaine Screen Presumptive negative 11/25/16 20:00 U Marijuana (THC) Screen Presumptive negative 11/25/16 20:00 Drugs of Abuse Note Disclamer 11/25/16 20:00 Plasma/Serum Alcohol < 0.01 gm% (0-0.07) 11/25/16 19:24
[2016-11-26] MEDS ORDERED: LOVENOX SUB-Q SCH (10:00)
[2016-11-26] MEDS ORDERED: NACL 0.9% 1000 ML 1,000 ML IV SCH (11:00)
[2016-11-26] MEDS: LOVENOX SUB-Q SCH (11:32)
--- NOTE | 2016-11-26 12:11 | Admit Criteria Form ---
Admission Criteria Documentation: MENTAL STATUS CHANGE Clinical Indications for Inpatient Care (Place 'X' for any and all applicable criteria): Ongoing inpatient care may be needed for 1 or more of the following(1)(2)(3)(5)( 6): [ X]I. Suspected serious etiology (eg, medical disorder, WAREHOUSE RECEIVING CLERK event) of altered mental status [ ]II. Danger to self or others not manageable at lower level of care [ ]III. Grave disability (eg, inability to perform self care necessary at lower level of care) [ ]IV. Agitation or inappropriate behavior interfering with care for primary condition (eg, attempting to discontinue lines or drains prematurely, unable to cooperate with respiratory care) [ ]V. Delirium [A] [D][E] as described by 1 or more of the following(26): [ ]a) Delirium due to alcohol or sedative [F] withdrawal [ ]b) Delirium of uncertain etiology that has not responded to appropriate empiric treatment [ ]c) Delirium that prevents performance of a life-sustaining function (eg, feeding or hydrating oneself) [X ]. General contraindications and/or Inappropriate clinical situations for Observational Care in patients with Mental Status Change, when ANY ONE of the following is required: [X ]a) Prediction of prolongation of LOS based on ANY ONE of the following may be considered as a contraindication for observational care 2, 3, 4, 5, 6, 7, 8, 9, 10, 11 [X ]i) Age > 65 yrs. [ ]ii) Patient arriving by ambulance [ ]iii) Patient with high acuity [ ]iv) Patient requiring vital sign monitoring [ ]v) Patient on IV medication [ ]b) Systolic blood pressures greater than or equal to 180mmHg 3, 12 [ ]c) Patient with altered mental status including delirium and other alteration of consciousness, (3) [ ]d) Patient whose discharge disposition will be to a [facility] home or rehabilitation home should not be managed in Emergency Department Observation Unit. CMS rule requires 3 days hospital stay before such placement.3,13 [ ]e) Patient with failure to thrive due to broad array of etiologies 3,16,17 [ ]f) Inability to ambulate 3,14 Extended stay beyond goal length of stay for the primary condition may be needed until ALL of the following are present(3)(5): [ ]a) Underlying medical etiology of mental status change is absent, or has been established and adequately treated [ ]b) Danger to self or others is absent or manageable at lower level of care. [ ]c) Behavior crisis management, including physical or chemical restraints, is not required or available at lower level of car [ ]d) Substance or alcohol withdrawal is absent or manageable at lower level of care. [ ]e) Behavioral symptoms (eg, agitation, somnolence, inappropriate behavior) are absent, or are manageable at lower level of care. The original [facility] [employer] content created by [facility] [employer] has been revised. The portions of the content which have been revised are identified through the use of italic text or in bold, and [facility] has neither reviewed nor approved the modified material. All other unmodified content is copyright [facility] [employer]. Please see references footnoted in the original [facility] [employer] edition 2016 Admission Criteria Met: Yes
[2016-11-26] MEDS: DUONEB *Not for PRN Use IH SCH ×2 (14:00→21:53)
--- NOTE | 2016-11-26 18:53 | Event Note ---
Date: 11/26/16 Patient was seen and evaluated along with the nurse practitioner this morning, medical records reviewed Patient feels slightly better, no new episodes of syncope and bradycardia, AV node blocking agents held, significant improvement of heart rate Physical examination as detailed below Formulated the plan of care along with the nurse practitioner, Progress note reviewed and agreed with the plan of care and documentation
[2016-11-27] MEDS: DUONEB *Not for PRN Use IH SCH ×2 (08:57→16:06)
[2016-11-27] MEDS: LOVENOX SUB-Q SCH (10:37)
--- NOTE | 2016-11-27 14:17 | Discharge Summary ---
Providers - Providers Date of Admission: 11/25/16 22:51 Date of discharge: 11/27/16 Attending physician: KATIE MELÉNDEZ Primary care physician: BECKY LOPEZ Hospitalization Reason for admission: metabolic encephalopathy/syncope Condition: Stable Pertinent studies: Chest x-ray; no acute abnormality noted CT head without contrast; no acute intracranial abnormality noted chronic sequelae of atrophy and microvascular angiopathy. CT chest; no pulmonary embolism or aortic dissection, stick changes in the lungs compatible with moderate COPD Echocardiogram; LV ejection fraction 50-55% Carotid Doppler; no hemodynamically significant stenosis Hospital course: 65-year-old male patient with significant history of hypertension diabetes mellitus schizophrenia dementia was admitted through emergency room sent from the hospital for behavioral medicine because of altered level of consciousness and incorporated episode Patient was initially evaluated and admitted to the hospital, had extensive evaluation which was negative as mentioned above Noted to have mild bradycardia, patient's Cardizem and atenolol were discontinued. Evaluated by delivery driver/supervisor physical therapy occupational therapy received, patient's symptoms significantly improved Today he is comfortable in bed, no new episodes of syncope or dizziness, ambulating and tolerating oral nutrition Alert awake oriented 3, vital signs are stable, [id number] evaluation physical examination done by me prior to discharge his unremarkable as detailed below Smoking cessation counseling done patient strongly advised to quit tobacco use, advised to use nicotine patch as needed Final diagnosis; Metabolic: The resolved Syncope, workup negative Mild bradycardia, beta blockers and Cardizem discontinued Heart rate improved History of COPD Hypertension Schizophrenia Hyperkalemia corrected Dyslipidemia schizophrenia Disposition: DC/TX-70 [facility]OTHER [facility] Time spent for discharge: 33 min Core Measure Documentation - Palliative Care Palliative Care/ Comfort Measures: Not Applicable - Core Measures Any of the following diagnoses?: none Exam - Constitutional Vitals: Temp Pulse Resp BP Pulse Ox 99.0 F 58 L 16 162/97 100 11/27/16 12:31 11/27/16 12:31 11/27/16 12:31 11/27/16 12:31 11/27/16 12:31 General appearance: Present: no acute distress, well-nourished - EENT Eyes: Present: PERRL, EOM intact - Neck Neck: Present: supple, normal ROM - Respiratory Respiratory effort: normal Respiratory: negative: rales, rhonchi, wheezing - Cardiovascular Rhythm: regular Heart Sounds: Present: S1 & S2 - Extremities Extremities: no ischemia, pulses intact - Abdominal General gastrointestinal: Present: soft, non-tender, non-distended, normal bowel sounds - Integumentary Integumentary: Present: clear, warm - Musculoskeletal Musculoskeletal: strength equal bilaterally, generalized weakness - Psychiatric Psychiatric: appropriate mood/affect, cooperative - Neurologic Neurologic: moves all extremities Plan Activity: advance as tolerated, fall precautions Diet: other (cardiac diet) Special Instructions: physical therapy, occupational therapy Additional Instructions: f/u delivery driver/supervisor 1 week for further evaluation of bradycardia and syncope. stop cardizem,Atenolol view of bradycardia. PMD to review all medications before resuming Follow up with: BECKY LOPEZ MD [Primary Care Provider] - 3-5 Days NIKKI HURTADO MD [Staff Physician] - 7 Days
--- NOTE | 2016-11-27 18:00 | Progress Note ---
Hospitalist Physical - Constitutional Vitals: Temp Pulse Resp BP Pulse Ox 99.0 F 58 L 18 163/103 97 11/27/16 17:07 11/27/16 17:07 11/27/16 17:07 11/27/16 17:07 11/27/16 17:07 General appearance: Present: no acute distress, well-nourished Results - Labs CBC & Chem 7: 11/26/16 04:03 11/26/16 04:03 Labs: Laboratory Last Values WBC 4.7 K/mm3 (4.5-11.0) 11/26/16 04:03 RBC 4.47 M/mm3 (3.65-5.03) 11/26/16 04:03 Hgb 13.7 gm/dl (11.8-15.2) 11/26/16 04:03 Hct 40.6 % (35.5-45.6) 11/26/16 04:03 MCV 91 fl (84-94) 11/26/16 04:03 MCH 31 pg (28-32) 11/26/16 04:03 MCHC 34 % (32-34) 11/26/16 04:03 RDW 14.2 % (13.2-15.2) 11/26/16 04:03 Plt Count 126 K/mm3 (140-440) L 11/26/16 04:03 Lymph % (Auto) 47.8 % (13.4-35.0) H 11/26/16 04:03 Brooks % (Auto) 9.8 % (0.0-7.3) H 11/26/16 04:03 Eos % (Auto) 2.6 % (0.0-4.3) 11/26/16 04:03 Baso % (Auto) 0.8 % (0.0-1.8) 11/26/16 04:03 Lymph # 2.2 K/mm3 (1.2-5.4) 11/26/16 04:03 Brooks # 0.5 K/mm3 (0.0-0.8) 11/26/16 04:03 Eos # 0.1 K/mm3 (0.0-0.4) 11/26/16 04:03 Baso # 0.0 K/mm3 (0.0-0.1) 11/26/16 04:03 Seg Neutrophils % 39.0 % (40.0-70.0) L 11/26/16 04:03 Seg Neutrophils # 1.8 K/mm3 (1.8-7.7) 11/26/16 04:03 D-Dimer 674.70 ng/mlDDU (0-234) H 11/25/16 23:14 Sodium 136 mmol/L (137-145) L 11/26/16 04:03 Potassium 5.1 mmol/L (3.6-5.0) H D 11/26/16 04:03 Chloride 99.6 mmol/L (98-107) 11/26/16 04:03 Carbon Dioxide 22 mmol/L (22-30) D 11/26/16 04:03 Anion Gap 20 mmol/L 11/26/16 04:03 BUN 13 mg/dL (9-20) 11/26/16 04:03 Creatinine 1.0 mg/dL (0.8-1.5) 11/26/16 04:03 Estimated GFR > 60 ml/min 11/26/16 04:03 BUN/Creatinine Ratio 13.00 % 11/26/16 04:03 Glucose 112 mg/dL (75-100) H 11/26/16 04:03 Lactic Acid 1.30 mmol/L (0.7-2.0) 11/25/16 22:54 Calcium 8.7 mg/dL (8.4-10.2) 11/26/16 04:03 Magnesium 1.90 mg/dL (1.7-2.3) 11/25/16 19:24 Total Bilirubin 0.70 mg/dL (0.1-1.2) 11/25/16 19:24 AST 17 units/L (5-40) 11/25/16 19:24 ALT 6 units/L (7-56) L 11/25/16 19:24 Alkaline Phosphatase 56 units/L (35-129) 11/25/16 19:24 Total Creatine Kinase 149 units/L (55-170) 11/26/16 04:03 CK-MB (CK-2) 1.4 ng/mL (0.0-4.0) 11/26/16 04:03 CK-MB (CK-2) Rel Index 0.9 (0-4) 11/26/16 04:03 Troponin T < 0.010 ng/mL (0.00-0.029) 11/26/16 04:03 Total Protein 7.8 g/dL (6.3-8.2) 11/25/16 19:24 Albumin 4.1 g/dL (3.9-5) 11/25/16 19:24 Albumin/Globulin Ratio 1.1 % 11/25/16 19:24 TSH 1.000 mlU/mL (0.270-4.200) 11/25/16 19:24 Urine Color Colorless (Yellow) 11/25/16 20:00 Urine Turbidity Clear (Clear) 11/25/16 20:00 Urine pH 8.0 (5.0-7.0) H 11/25/16 20:00 Ur Specific Winston 1.005 (1.003-1.030) 11/25/16 20:00 Urine Protein <15 mg/dl mg/dL (Negative) 11/25/16 20:00 Urine Glucose (UA) Neg mg/dL (Negative) 11/25/16 20:00 Urine Ketones Neg mg/dL (Negative) 11/25/16 20:00 Urine Blood Neg (Negative) 11/25/16 20:00 Urine Nitrite Neg (Negative) 11/25/16 20:00 Urine Bilirubin Neg (Negative) 11/25/16 20:00 Urine Urobilinogen < 2.0 mg/dL (<2.0) 11/25/16 20:00 Ur Leukocyte Esterase Neg (Negative) 11/25/16 20:00 Urine WBC (Auto) 0.0 /HPF (0.0-6.0) 11/25/16 20:00 Urine RBC (Auto) 1.0 /HPF (0.0-6.0) 11/25/16 20:00 Urine Bacteria (Auto) 1+ /HPF (Negative) 11/25/16 20:00 Salicylates < 0.3 mg/dL (2.8-20.0) L 11/25/16 19:24 Urine Opiates Screen Presumptive negative 11/25/16 20:00 Urine Methadone Screen Presumptive negative 11/25/16 20:00 Acetaminophen < 15.0 ug/mL (10.0-30.0) 11/25/16 19:24 Ur Barbiturates Screen Presumptive negative 11/25/16 20:00 Ur Phencyclidine Scrn Presumptive negative 11/25/16 20:00 Ur Amphetamines Screen Presumptive negative 11/25/16 20:00 U Benzodiazepines Scrn Presumptive negative 11/25/16 20:00 Urine Cocaine Screen Presumptive negative 11/25/16 20:00 U Marijuana (THC) Screen Presumptive negative 11/25/16 20:00 Drugs of Abuse Note Disclamer 11/25/16 20:00 Plasma/Serum Alcohol < 0.01 gm% (0-0.07) 11/25/16 19:24
[2016-11-27 18:51] VITALS: BP 168/96
--- NOTE | 2016-11-27 23:45 | Consultation ---
History of Present Illness Consult date: 11/28/16 Consult reason: syncope History of present illness: History per the triage sheet. This is a 65-year-old man with a history of hypertension, COPD, schizophrenia, dementia, CVA was sent from the long-term because he was noted to be confused, they found him slumped over at the table. Patient does not recall events Patient denies chest pain, palpitation, shortness of breath, cough, abdominal pain, hematochezia, dysuria, frequency, focal weakness, dysarthria, fever chills , polydipsia polyuria, hot or cold intolerance, easy bruisability, or rash or bleeding from mucosal membrane, rhinorrhea, epistaxis, earache, tinnitus, blurry vision, eye discharge, anxiety, depression. Other review of systems negativ Past History Past Medical History: COPD, hypertension, stroke, other (schizophrenia, dementia , CVA) Past Surgical History: No surgical history Social history: smoking. denies: alcohol abuse, IV drug use Family history: no significant family history Medications and Allergies Allergies Allergy/AdvReac Type Severity Reaction Status Date / Time banana Allergy Unknown Verified 07/30/14 18:56 fluphenazine enanthate Allergy Unknown Verified 07/30/14 18:56 [From Prolixin] fluphenazine HCl Allergy Unknown Verified 07/30/14 18:56 [From Prolixin] Home Medications Medication Instructions Recorded Confirmed Last Taken Type Divalproex ER [Depakote ER] 750 mg PO QHS 07/30/14 11/26/16 1 Day Ago History Simvastatin [Zocor TAB] 20 mg PO QHS 02/11/16 11/26/16 1 Day Ago History risperiDONE [RisperDAL] 4 mg PO QHS 02/11/16 11/26/16 1 Day Ago History Aspirin EC [Aspirin Enteric Coated 81 mg PO QDAY #30 tablet.dr 02/12/16 1 Day Ago Rx TAB] Benztropine [Cogentin] 1 mg PO QHS tablet 02/12/16 11/26/16 1 Day Ago Rx amLODIPine [Norvasc] 10 mg PO DAILY tablet 02/12/16 11/26/16 1 Day Ago Rx Active Meds: Active Medications Acetaminophen (Tylenol) 650 mg PO Q4H PRN PRN Reason: Pain MILD(1-3)/Fever >100.5/[place] Albuterol (Proventil) 2.5 mg IH Q3HRT PRN PRN Reason: Shortness Of Breath Albuterol/Ipratropium (Duoneb 0.5 Mg-3 Mg/3 Ml Soln) 1 ampul IH TIDRT [facility] Last Admin: 11/27/16 16:06 Dose: 1 ampul Bisacodyl (Dulcolax) 10 mg TN QDAY PRN PRN Reason: Constipation unrelieved by MOM Enoxaparin Sodium (Lovenox) 40 mg SUB-Q QDAY@1000 [facility] Last Admin: 11/27/16 10:37 Dose: 40 mg Hydralazine HCl (Apresoline) 5 mg IV Q6HR PRN PRN Reason: Hypertension Sodium Chloride (Nacl 0.9% 1000 Ml) 1,000 mls @ 50 mls/hr IV DIRECT [facility] Last Admin: 11/26/16 11:44 Dose: 75 mls/hr Magnesium Hydroxide (Milk Of Magnesia) 30 ml PO Q4H PRN PRN Reason: Constipation Ondansetron HCl (Zofran) 4 mg IV Q8H PRN PRN Reason: N/V unrelieved by Reglan Review of Systems All systems: negative (positives mentioned in HPI) Physical Examination Vital Signs Pulse Ox 93 11/25/16 18:32 Results 11/26/16 04:03 11/26/16 04:03 Assessment and Plan Altered mental status Syncope Hypertension Schizophrenia COPD
--- NOTE | 2016-12-01 10:21 | Vascular Lab Report ---
CAROTID DUPLEX STUDY: RIGHT PSVEDV CCA PROX:6415 CCA DIST:5416 ICA PROX:3314 ICA MID:4921 ICA DIST:7627 ECA: 55 VERT: 42 15 LEFT PSVEDV CCA PROX:7018 CCA DIST:4412 ICA PROX:3513 ICA MID:4017 ICA DIST:5020 ECA: 63 VERT: 31 10 REASON FOR EXAM: Carotid artery stenosis/syncope. COMMENTS ON THE RIGHT: Doppler frequency analysis is consistent with 16 to 49 percent diameter reduction of the internal carotid artery. A small amount of focal ulcerated plaque is noted in the carotid bulb The common carotid artery is patent. The external carotid artery is patent. The vertebral artery has antegrade flow. COMMENTS ON THE LEFT: Doppler frequency analysis is consistent with 16 to 49 percent diameter reduction of the internal carotid artery. A small amount of focal ulcerated plaque is noted in the carotid bulb The common carotid artery is patent. The external carotid artery is patent. The vertebral artery has antegrade flow. IMPRESSION: Less than 50% diameter reduction in the internal carotid arteries bilaterally. Consider CTA to further evaluate the plaque.
== END 2016-11-28 01:13 | disposition short-term general hospital (02) | DRG 308 ==
LOC: ED 18:31 → 4A 22:51
PROVIDERS: ADMIT Internal Medicine; ATTEND Internal Medicine
DX: R00.1 Bradycardia, unspecified (principal); G93.41 Metabolic encephalopathy; R55 Syncope and collapse; F20.9 Schizophrenia, unspecified; J44.9 Chronic obstructive pulmonary disease, unspecified; I10 Essential (primary) hypertension; E87.6 Hypokalemia; D69.6 Thrombocytopenia, unspecified; F17.210 Nicotine dependence, cigarettes, uncomplicated; E87.5 Hyperkalemia; E11.9 Type 2 diabetes mellitus without complications; Z91.018 Allergy to other foods; Z82.49 Family history of ischemic heart disease and other diseases of the circulatory system; Z88.8 Allergy status to other drugs, medicaments and biological substances; Z86.73 Personal history of transient ischemic attack (TIA), and cerebral infarction without residual deficits; Z71.6 Tobacco abuse counseling
CPT/HCPCS: 36415; 70450; 71010; 71275; 80048; 80053; 80307; 80320; 81001; 82140; 82550; 82553; 83735; 84443; 84484; 85025; 85379; 93005; 93010; 93306; 93880; 94640; 94760; G0480; J0360; J1650; J7030; Q9967

== ENCOUNTER 2017-09-03 20:39 | Emergency (ER) | payer MEDICARE ==
[2017-09-03] MEDS ORDERED: NACL 0.9% 500 ML 500 ML IV ONE (21:10)
[2017-09-03] MEDS ORDERED: TYLENOL ONE (21:11)
[2017-09-03] MEDS ORDERED: TYLENOL PO ONE (21:12)
[2017-09-03 21:42] LABS: Basophils % (Auto) 0.3 % (0.0-1.8); Eosinophils % (Auto) 0.2 % (0.0-4.3); Hematocrit 38.9 % (35.5-45.6); Hemoglobin 13.1 gm/dl (11.8-15.2); Lymphocytes # (Auto) 0.6 K/mm3 (1.2-5.4); Lymphocytes % (Auto) 8.6 % (13.4-35.0); Mean Corpuscular HGB Conc 34 % (32-34); Mean Corpuscular Hemoglobin 31 pg (28-32); Mean Corpuscular Volume 94 fl (84-94); Monocytes # (Auto) 0.7 K/mm3 (0.0-0.8); Monocytes % (Auto) 10.4 % (0.0-7.3); Platelet Count 122 K/mm3 (140-440); Red Blood Count 4.16 M/mm3 (3.65-5.03); Red Cell Distribution Width 14.7 % (13.2-15.2)
[2017-09-03 21:50] LABS: INR 1.17 (0.87-1.13)
[2017-09-03 21:55] LABS: Albumin 4.3 g/dL (3.9-5)
[2017-09-03 22:07] LABS: BUN/Creatinine Ratio 10; Blood Urea Nitrogen 14 mg/dL (9-20); Calcium 8.7 mg/dL (8.4-10.2); Hemolysis Index 4
[2017-09-03 22:09] LABS: Alanine Aminotransferase < 5 units/L (7-56)
--- NOTE | 2017-09-03 22:34 | XRay Report ---
FINAL REPORT EXAM: XR CHEST 1V AP HISTORY: possible Sepsis COMPARISON: CT of the chest from November 2016. FINDINGS: Frontal view(s) of the chest obtained. Heart borderline enlarged. Tortuous course of the thoracic aorta.. No gross consolidation or effusion. No pneumothorax. IMPRESSION: No grossly acute findings.
[2017-09-04 01:24] LABS: Bilirubin,Urine NEG (Negative); Blood,Urine SM (Negative); Color,Urine Yellow (Yellow); Protein,Urine <15 mg/dL mg/dL (Negative)
[2017-09-04 01:32] LABS: WBC,Urine < 1.0 /HPF (0.0-6.0)
--- NOTE | 2017-09-04 01:37 | Cat Scan Report ---
FINAL REPORT EXAM: CT HEAD/BRAIN WO CON HISTORY: cva COMPARISON: CT of the head from November 2016. TECHNIQUE: Axial images obtained skull base through vertex. FINDINGS: No acute intracranial hemorrhage, midline shift or pathologic extra axial fluid collection. Age related volume loss with compensatory dilatation of the ventricular system and chronic small vessel ischemic disease. Otherwise, muñoz-white differentiation preserved. Calvarium grossly intact. Ocular globes are grossly unremarkable. Mild to moderate mucosal thickening the visualized paranasal sinuses. Mastoid air cells are clear. IMPRESSION: No grossly acute intracranial abnormality. Mild to moderate age related volume loss and moderate chronic small vessel ischemic disease. If clinical concern for acute intracranial process remains, MRI would be suggested for further evaluation.
--- NOTE | 2017-09-04 02:15 | Emergency Department Report ---
ED General Adult HPI - General Chief complaint: Fever Stated complaint: SHAKING,NOT BALANCING Time Seen by Provider: 09/03/17 22:16 Source: patient Mode of arrival: Ambulatory Limitations: No Limitations - History of Present Illness Initial comments: Patient was brought him because he had a fever which started yesterday. Patient himself has no complaints at this time he is alert and oriented to place and person. He denies any headache or neck stiffness. -: Gradual Radiation: non-radiation Severity scale (0 -10): 0 Consistency: constant Improves with: none Worsens with: none Associated Symptoms: denies other symptoms - Related Data Home Medications Medication Instructions Recorded Confirmed Last Taken Divalproex ER [Depakote ER] 750 mg PO QHS 07/30/14 09/03/17 1 Day Ago ~11/25/16 Simvastatin [Zocor TAB] 20 mg PO QHS 02/11/16 09/03/17 1 Day Ago ~11/25/16 Trazodone HCl 50 mg PO QHS 09/03/17 09/03/17 Unknown risperiDONE [Risperdal M-Tab] 0.5 mg PO QAM 09/03/17 09/03/17 Unknown Previous Rx's Medication Instructions Recorded Last Taken Type Aspirin EC [Aspirin Enteric Coated 81 mg PO QDAY #30 tablet. 02/12/16 1 Day Ago Rx TAB] ~11/25/16 amLODIPine [Norvasc] 10 mg PO DAILY tablet 02/12/16 1 Day Ago Rx ~11/25/16 Allergies Allergy/AdvReac Type Severity Reaction Status Date / Time banana Allergy Unknown Verified 07/30/14 18:56 fluphenazine enanthate Allergy Unknown Verified 07/30/14 18:56 [From Prolixin] fluphenazine HCl Allergy Unknown Verified 07/30/14 18:56 [From Prolixin] ED Review of Systems ROS: Stated complaint: SHAKING,NOT BALANCING Other details as noted in HPI Comment: All other systems reviewed and negative ED Past Medical Hx - Past Medical History Hx Hypertension: Yes Hx CVA: Yes Hx Pulmonary Embolism: No Hx Headaches / Migraines: No Hx Seizures: No Hx Psychiatric Treatment: Yes (Schizophrenia) Hx Asthma: No Hx COPD: Yes Hx Tuberculosis: No Hx Dementia: Yes - Surgical History Additional Surgical History: Unknown - Social History Smoking Status: Current Every Day Smoker Substance Use Type: None - Medications Home Medications: Home Medications Medication Instructions Recorded Confirmed Last Taken Type Divalproex ER [Depakote ER] 750 mg PO QHS 07/30/14 09/03/17 1 Day Ago History ~11/25/16 Simvastatin [Zocor TAB] 20 mg PO QHS 02/11/16 09/03/17 1 Day Ago History ~11/25/16 Aspirin EC [Aspirin Enteric Coated 81 mg PO QDAY #30 tablet.dr 02/12/16 1 Day Ago Rx TAB] ~11/25/16 amLODIPine [Norvasc] 10 mg PO DAILY tablet 02/12/16 09/03/17 1 Day Ago Rx ~11/25/16 Trazodone HCl 50 mg PO QHS 09/03/17 09/03/17 Unknown History risperiDONE [Risperdal M-Tab] 0.5 mg PO QAM 09/03/17 09/03/17 Unknown History ED Physical Exam - General Limitations: No Limitations General appearance: alert, in no apparent distress - Head Head exam: Present: atraumatic, normocephalic - Eye Eye exam: Present: normal appearance - ENT ENT exam: Present: mucous membranes moist - Neck Neck exam: Present: normal inspection - Respiratory Respiratory exam: Present: normal lung sounds bilaterally. Absent: respiratory distress - Cardiovascular Cardiovascular Exam: Present: regular rate, normal rhythm. Absent: systolic murmur, diastolic murmur, rubs, gallop - GI/Abdominal GI/Abdominal exam: Present: soft, normal bowel sounds. Absent: tenderness - Rectal Rectal exam: Present: deferred - Extremities Exam Extremities exam: Present: normal inspection - Back Exam Back exam: Present: normal inspection - Neurological Exam Neurological exam: Present: alert, oriented X3 - Psychiatric Psychiatric exam: Present: normal affect, normal mood - Skin Skin exam: Present: warm, dry, intact, normal color. Absent: rash ED Course Vital Signs 09/03/17 09/03/17 09/03/17 20:52 21:17 21:20 Temperature 102.7 F H 102.1 F H Pulse Rate 98 H Respiratory 16 29 H Rate Blood Pressure 150/100 Blood Pressure 158/101 [Left] O2 Sat by Pulse 99 95 98 Oximetry 09/03/17 09/03/17 09/03/17 21:24 21:31 21:45 Temperature Pulse Rate 91 H 83 Respiratory 18 31 H 30 H Rate Blood Pressure 137/90 144/90 Blood Pressure [Left] O2 Sat by Pulse 97 97 Oximetry 09/03/17 09/03/17 09/03/17 21:50 22:00 22:15 Temperature Pulse Rate 78 74 Respiratory 16 27 H 25 H Rate Blood Pressure 123/86 130/87 Blood Pressure [Left] O2 Sat by Pulse 96 97 97 Oximetry 09/03/17 09/03/17 09/03/17 22:31 22:45 23:00 Temperature Pulse Rate 79 76 69 Respiratory 28 H 23 27 H Rate Blood Pressure 121/80 122/77 115/78 Blood Pressure [Left] O2 Sat by Pulse 97 98 94 Oximetry 09/03/17 09/03/17 09/03/17 23:15 23:30 23:45 Temperature Pulse Rate 67 66 65 Respiratory 30 H 32 H 31 H Rate Blood Pressure 120/77 117/77 118/76 Blood Pressure [Left] O2 Sat by Pulse 94 94 94 Oximetry 09/04/17 09/04/17 09/04/17 00:00 00:15 00:30 Temperature Pulse Rate 61 63 61 Respiratory 24 27 H 27 H Rate Blood Pressure 119/76 145/84 123/79 Blood Pressure [Left] O2 Sat by Pulse 94 95 94 Oximetry 09/04/17 09/04/17 09/04/17 00:45 01:00 01:10 Temperature 98.8 F Pulse Rate 59 L 63 Respiratory 30 H 19 Rate Blood Pressure 113/75 141/90 Blood Pressure [Left] O2 Sat by Pulse 95 94 Oximetry ED Medical Decision Making - Lab Data Result diagrams: 09/03/17 21:16 09/03/17 21:16 - EKG Data -: EKG Interpreted by [place] EKG shows normal: sinus rhythm (rate of 89), axis (normal), intervals (normal), QRS complexes (normal), ST-T waves (normal. pvc's) Critical care attestation.: If time is entered above; I have spent that time in minutes in the direct care of this critically ill patient, excluding procedure time. ED Disposition Clinical Impression: Viral syndrome Disposition: DC-01 TO HOME OR SELFCARE Is pt being admited?: No Does the pt Need Aspirin: No Condition: Stable Instructions: Viral Syndrome (ED) Additional Instructions: Drink lots of fluid and take Tylenol or Motrin as needed for fever Referrals: NIKKI POST MD [Primary Care Provider] - 3-5 Days Time of Disposition: 02:33 Print Language: SINHALA
[2017-09-04 02:55] VITALS: BP 148/94
== END 2017-09-04 03:30 | disposition home or self-care (01) ==
LOC: ED 20:39
DX: B34.9 Viral infection, unspecified (principal); I10 Essential (primary) hypertension; J44.9 Chronic obstructive pulmonary disease, unspecified; F17.200 Nicotine dependence, unspecified, uncomplicated; Z86.73 Personal history of transient ischemic attack (TIA), and cerebral infarction without residual deficits; Z88.8 Allergy status to other drugs, medicaments and biological substances; Z91.018 Allergy to other foods
CPT/HCPCS: 36415; 70450; 71045; 80053; 81001; 82140; 82805; 85025; 85610; 87040; 87086; 93005; 93010; 99285; J7040

== ENCOUNTER 2017-09-08 07:48 | Emergency (ER) | payer MEDICARE ==
[2017-09-08 09:05] LABS: Basophils % (Auto) 0.2 % (0.0-1.8); Eosinophils % (Auto) 0.1 % (0.0-4.3); Hematocrit 35.1 % (35.5-45.6); Hemoglobin 11.9 gm/dl (11.8-15.2); Lymphocytes # (Auto) 0.4 K/mm3 (1.2-5.4); Lymphocytes % (Auto) 4.8 % (13.4-35.0); Mean Corpuscular HGB Conc 34 % (32-34); Mean Corpuscular Hemoglobin 31 pg (28-32); Mean Corpuscular Volume 92 fl (84-94); Monocytes # (Auto) 0.8 K/mm3 (0.0-0.8); Monocytes % (Auto) 10.1 % (0.0-7.3); Platelet Count 122 K/mm3 (140-440); Red Blood Count 3.81 M/mm3 (3.65-5.03); Red Cell Distribution Width 13.7 % (13.2-15.2)
[2017-09-08] MEDS ORDERED: TYLENOL PO ONE (09:08)
--- NOTE | 2017-09-08 09:17 | XRay Report ---
AP CHEST: HISTORY: Possible sepsis No change since 09/03/17. The lungs are clear. Heart size and pulmonary vascularity are within normal limits. The aorta is mildly ectatic. The bony structures are grossly intact. IMPRESSION: No acute process identified.
[2017-09-08 09:20] LABS: INR 1.17 (0.87-1.13)
[2017-09-08 09:22] LABS: Albumin 3.6 g/dL (3.9-5); BUN/Creatinine Ratio 11; Blood Urea Nitrogen 12 mg/dL (9-20); Calcium 8.5 mg/dL (8.4-10.2); Hemolysis Index 1
--- NOTE | 2017-09-08 09:43 | Emergency Department Report ---
ED General Adult HPI - General Chief complaint: Weakness Stated complaint: WEAKNESS Time Seen by Provider: 09/08/17 09:10 Source: EMS Mode of arrival: Stretcher Limitations: Physical Limitation - History of Present Illness Initial comments: History of schizophrenia and lives in a personal assisted here for evaluation of possible fever he was here on the for similar (personal assisted [facility] formerly [facility] [phone])" patient wasn't himself today didn't want to eat and had poor responding" he does arrive here awake alert and answering questions and following commands w/ possible Fever for several days seen several days ago for viral syndrome he is awake alert oriented now has a history of dementia and psychosis but is verbalizing understanding and following commands chronic dementia no airway problems supple neck no rash no stridor no drooling, here eval possible ams and fever, w/ uri ssx -: hour(s), days(s), unknown Location: head Radiation: non-radiation Severity scale (0 -10): 0 Consistency: intermittent Improves with: none, medication Associated Symptoms: fever/chills, malaise, weakness. denies: confusion, chest pain, diaphoresis, headaches, rash, seizure, shortness of breath, syncope - Related Data Home Medications Medication Instructions Recorded Confirmed Last Taken Divalproex ER [Depakote ER] 750 mg PO QHS 07/30/14 09/03/17 1 Day Ago ~11/25/16 Simvastatin [Zocor TAB] 20 mg PO QHS 02/11/16 09/03/17 1 Day Ago ~11/25/16 Trazodone HCl 50 mg PO QHS 09/03/17 09/03/17 Unknown risperiDONE [Risperdal M-Tab] 0.5 mg PO QAM 09/03/17 09/03/17 Unknown Previous Rx's Medication Instructions Recorded Last Taken Type Aspirin EC [Aspirin Enteric Coated 81 mg PO QDAY #30 tablet. 02/12/16 1 Day Ago Rx TAB] ~11/25/16 amLODIPine [Norvasc] 10 mg PO DAILY tablet 02/12/16 1 Day Ago Rx ~11/25/16 Doxycycline [Vibramycin CAP] 100 mg PO Q12HR #20 capsule 09/08/17 Unknown Rx Sodium Chloride [Saline Nasal Mist] 2 pump NS DAILY PRN #1 mist 09/08/17 Unknown Rx Allergies Allergy/AdvReac Type Severity Reaction Status Date / Time banana Allergy Unknown Verified 07/30/14 18:56 fluphenazine enanthate Allergy Unknown Verified 07/30/14 18:56 [From Prolixin] fluphenazine HCl Allergy Unknown Verified 07/30/14 18:56 [From Prolixin] ED Review of Systems ROS: Stated complaint: WEAKNESS Other details as noted in HPI Comment: Unobtainable due to pts medical conditions ED Past Medical Hx - Past Medical History Hx Hypertension: Yes Hx CVA: Yes Hx Pulmonary Embolism: No Hx Headaches / Migraines: No Hx Seizures: No Hx Psychiatric Treatment: Yes (Schizophrenia) Hx Asthma: No Hx COPD: Yes Hx Tuberculosis: No Hx Dementia: Yes - Surgical History Additional Surgical History: Unknown - Social History Smoking Status: Current Every Day Smoker Substance Use Type: Alcohol, Cocaine - Medications Home Medications: Home Medications Medication Instructions Recorded Confirmed Last Taken Type Divalproex ER [Depakote ER] 750 mg PO QHS 07/30/14 09/03/17 1 Day Ago History ~11/25/16 Simvastatin [Zocor TAB] 20 mg PO QHS 02/11/16 09/03/17 1 Day Ago History ~11/25/16 Aspirin EC [Aspirin Enteric Coated 81 mg PO QDAY #30 tablet.dr 02/12/16 1 Day Ago Rx TAB] ~11/25/16 amLODIPine [Norvasc] 10 mg PO DAILY tablet 02/12/16 09/03/17 1 Day Ago Rx ~11/25/16 Trazodone HCl 50 mg PO QHS 09/03/17 09/03/17 Unknown History risperiDONE [Risperdal M-Tab] 0.5 mg PO QAM 09/03/17 09/03/17 Unknown History Doxycycline [Vibramycin CAP] 100 mg PO Q12HR #20 capsule 09/08/17 Unknown Rx Sodium Chloride [Saline Nasal Mist] 2 pump NS DAILY PRN #1 mist 09/08/17 Unknown Rx ED Physical Exam - General Limitations: Physical Limitation General appearance: alert, in no apparent distress, anxious - Head Head exam: Present: atraumatic, normocephalic - Eye Eye exam: Present: PERRL, EOMI - ENT ENT exam: Present: other (tenderness to sinuses) - Neck Neck exam: Present: normal inspection. Absent: tenderness, meningismus - Respiratory Respiratory exam: Present: normal lung sounds bilaterally. Absent: respiratory distress, wheezes, rales, rhonchi, stridor, accessory muscle use, prolonged expiratory - Cardiovascular Cardiovascular Exam: Present: regular rate, normal rhythm - GI/Abdominal GI/Abdominal exam: Present: soft. Absent: distended, tenderness, guarding, rebound, rigid, mass, bruit, pulsatile mass - Extremities Exam Extremities exam: Present: normal inspection, normal capillary refill. Absent: pedal edema, joint swelling, calf tenderness - Back Exam Back exam: Present: normal inspection. Absent: CVA tenderness (R), CVA tenderness (L), muscle spasm, paraspinal tenderness, vertebral tenderness - Neurological Exam Neurological exam: Present: alert, CN II-XII intact. Absent: motor sensory deficit - Psychiatric Psychiatric exam: Present: anxious. Absent: homicidal ideation, suicidal ideation - Skin Skin exam: Absent: cyanosis, diaphoretic, erythema, urticaria, vesicles, petechiae ED Course Vital Signs 09/08/17 09/08/17 09/08/17 08:06 08:13 08:30 Temperature 100.3 F H Pulse Rate 103 H 91 H 89 Respiratory 34 H 28 H 31 H Rate Blood Pressure 138/88 142/96 Blood Pressure 138/88 [Left] O2 Sat by Pulse 91 91 94 Oximetry 09/08/17 09/08/17 09/08/17 09:00 09:31 10:00 Temperature Pulse Rate 83 83 73 Respiratory 25 H 26 H 16 Rate Blood Pressure 146/89 94/76 138/83 Blood Pressure [Left] O2 Sat by Pulse 96 97 98 Oximetry 09/08/17 09/08/17 09/08/17 10:30 11:01 11:30 Temperature Pulse Rate 66 81 63 Respiratory 20 18 16 Rate Blood Pressure 125/81 125/81 115/76 Blood Pressure [Left] O2 Sat by Pulse 97 97 97 Oximetry 09/08/17 12:00 Temperature Pulse Rate 59 L Respiratory 17 Rate Blood Pressure 118/78 Blood Pressure [Left] O2 Sat by Pulse 97 Oximetry ED Medical Decision Making - Lab Data Result diagrams: 09/08/17 08:45 09/08/17 08:45 - EKG Data -: EKG Interpreted by [place] EKG shows normal: sinus rhythm - EKG Data Interpretation: no acute changes, nonspecific ST-T wave rosa 09/08/17 14:28 Occasional PVC noted, no acute ischemic change - Radiology Data Radiology results: report reviewed - Medical Decision Making 66-year-old unchanged CT brain, supple neck does have advanced sinus disease was somewhat worsening from previous CT, supple neck no rash chest x-ray negative likely sinusitis will need antibiotics he is nontoxic lactic is negative ,laboratory studies are otherwise unremarkable nad nl u/a, nontoxic, awake and seems baseline now, brain was neg for acute, stable outpt f/u abx and see pcp , return if worse, no evidence sepsis or other acute emergenct process that would require admit or further w/u is noted at this time Critical care attestation.: If time is entered above; I have spent that time in minutes in the direct care of this critically ill patient, excluding procedure time. ED Disposition Clinical Impression: Febrile illness, acute, Sinusitis, Schizophrenia Disposition: DC/TX-70 ANOTHER TYPE HLTHCARE Is pt being admited?: No Condition: Stable Instructions: Fever in Adults (ED), Sinusitis (ED) Additional Instructions: Return immediately if new or alarming symptoms or call 911 see her regular doctor or the doctor listed Prescriptions: Doxycycline [Vibramycin CAP] 100 mg PO Q12HR #20 capsule Sodium Chloride [Saline Nasal Mist] 2 pump NS DAILY PRN #1 mist PRN Reason: Congestion Referrals: PRIMARY CARE, [Primary Care Provider] - 3-5 Days NIKKI POST MD [Staff Physician] - 3-5 Days
[2017-09-08 09:44] LABS: Alanine Aminotransferase < 5 units/L (7-56)
--- NOTE | 2017-09-08 13:38 | Cat Scan Report ---
FINAL REPORT EXAM: CT HEAD/BRAIN WO CON HISTORY: ams TECHNIQUE: CT examination of the head without IV contrast PRIORS: 09/04/2017 FINDINGS: New bilateral near complete opacification of the visible portion of the maxillary sinuses. Slightly more prominent moderate mucosal thickening in the ethmoid sinuses. Slightly larger nonspecific fluid level in sphenoid sinus. Clear frontal sinuses as well as middle ear cavities and mastoid air cells. Bone windows demonstrate no acute fracture. There is ventricular and sulcal prominence compatible with global cerebrocortical atrophy. Low attenuation regions in the cerebral white matter, while nonspecific, are present and usually attributed to chronic ischemic gliosis. It can occur secondary to the normal aging process, hypertension, or arterial sclerotic vascular disease. The differential includes demyelination in the appropriate clinical setting. The brain contains no mass, mass effect, hemorrhage, or acute infarct. There is no extra-axial intracranial bleed or brain bleed. There is no midline shift. IMPRESSION: No acute CVA, intracranial bleed, or brain mass Paranasal sinus disease appears worse. Larger fluid level in sphenoid sinus may reflect acute sinusitis
[2017-09-08] MEDS ORDERED: VIBRAMYCIN PO ONE (14:26)
[2017-09-08 14:59] LABS: Bilirubin,Urine NEG (Negative); Blood,Urine NEG (Negative); Color,Urine Yellow (Yellow); Hyaline Casts,Urine 1 /LPF; Mucus,Urine FEW /HPF; Protein,Urine <15 mg/dL mg/dL (Negative)
[2017-09-08 16:00] VITALS: BP 124/78
== END 2017-09-08 17:27 | disposition other institution (70) ==
LOC: ED 07:48
DX: J01.90 Acute sinusitis, unspecified (principal); F20.9 Schizophrenia, unspecified; R50.9 Fever, unspecified; F17.200 Nicotine dependence, unspecified, uncomplicated; F12.10 Cannabis abuse, uncomplicated; J44.9 Chronic obstructive pulmonary disease, unspecified
CPT/HCPCS: 36415; 70450; 71045; 80053; 81001; 82140; 82805; 85025; 85610; 87040; 87086; 93005; 93010

== ENCOUNTER 2018-09-10 12:42 | Inpatient (IN) | payer MEDICARE ==
--- NOTE | 2018-09-10 12:55 | Emergency Department Report ---
ED Altered Mental Status HPI - General Stated Complaint: AMS Time Seen by Provider: 09/10/18 12:46 Source: patient, EMS, old records reviewed Mode of arrival: Stretcher Limitations: Altered Mental Status, Physical Limitation - History of Present Illness Initial Comments: 67-year-old male with a past medical history of schizophrenia,dementia, hepatitis C, hypertension and previous CVA with right-sided deficits, and COPD presents to the hospital with acute alteration in mental status and unsteady gait. Patient presented as a code stroke from the assisted living facility. EM S reports that staff reported that patient had a witnessed change in neurologic status and mental status 30 minutes prior to arrival approximately 12:15 PM. It is documented at his baseline that he needs supervision with ambulation and grooming but is otherwise independent with his ADLs. They report 30 minutes prior to arrival patient came confused and unsteady gait causing him to fall. Contrary to paperwork that states that patient has baseline right hemiparesis status post previous CVA, assisted-living facility denies pre-existing unilateral weakness. EMS report that they identify left-sided weakness on exam. Patient denies any pain. He is orientated to self but not to year and stays year is "1999". He does however know his birthdate. He has difficulty consistently following commands during examination. Previous medical record also states that patient has dementia. Med list reviewed. Patient is on aspirin 81 mg without other anticoagulants listed. after return from ct and completion of triage It was discovered that pt has a fever. - Related Data Home Medications Medication Instructions Recorded Confirmed Last Taken Divalproex ER [Depakote ER] 750 mg PO QHS 07/30/14 09/03/17 1 Day Ago ~11/25/16 Simvastatin (Nf) [Zocor TAB] 20 mg PO QHS 02/11/16 09/03/17 1 Day Ago ~11/25/16 Trazodone HCl 50 mg PO QHS 09/03/17 09/03/17 Unknown risperiDONE [Risperdal M-Tab] 0.5 mg PO QAM 09/03/17 09/03/17 Unknown Previous Rx's Medication Instructions Recorded Last Taken Type Aspirin EC [Aspirin Enteric Coated 81 mg PO QDAY #30 tablet. 02/12/16 1 Day Ago Rx TAB] ~11/25/16 amLODIPine [Norvasc] 10 mg PO DAILY tablet 02/12/16 1 Day Ago Rx ~11/25/16 Doxycycline [Vibramycin CAP] 100 mg PO Q12HR #20 capsule 09/08/17 Unknown Rx Sodium Chloride [Saline Nasal Mist] 2 pump NS DAILY PRN #1 mist 09/08/17 Unknown Rx Allergies Allergy/AdvReac Type Severity Reaction Status Date / Time banana Allergy Unknown Verified 07/30/14 18:56 fluphenazine enanthate Allergy Unknown Verified 07/30/14 18:56 [From Prolixin] fluphenazine HCl Allergy Unknown Verified 07/30/14 18:56 [From Prolixin] ED Review of Systems ROS: Stated complaint: AMS Other details as noted in HPI Comment: Unobtainable due to pts medical conditions ED Past Medical Hx - Past Medical History Hx Hypertension: Yes Hx CVA: Yes Hx Pulmonary Embolism: No Hx Headaches / Migraines: No Hx Seizures: No Hx Psychiatric Treatment: Yes (Schizophrenia) Hx Asthma: No Hx COPD: Yes Hx Tuberculosis: No Hx Dementia: Yes - Surgical History Additional Surgical History: Unknown - Social History Substance Use Type: None - Medications Home Medications: Home Medications Medication Instructions Recorded Confirmed Last Taken Type Divalproex ER [Depakote ER] 750 mg PO QHS 07/30/14 09/03/17 1 Day Ago History ~11/25/16 Simvastatin (Nf) [Zocor TAB] 20 mg PO QHS 02/11/16 09/03/17 1 Day Ago History ~11/25/16 Aspirin EC [Aspirin Enteric Coated 81 mg PO QDAY #30 tablet.dr 02/12/16 09/03/17 1 Day Ago Rx TAB] ~11/25/16 amLODIPine [Norvasc] 10 mg PO DAILY tablet 02/12/16 09/03/17 1 Day Ago Rx ~11/25/16 Trazodone HCl 50 mg PO QHS 09/03/17 09/03/17 Unknown History risperiDONE [Risperdal M-Tab] 0.5 mg PO QAM 09/03/17 09/03/17 Unknown History Doxycycline [Vibramycin CAP] 100 mg PO Q12HR #20 capsule 09/08/17 Unknown Rx Sodium Chloride [Saline Nasal Mist] 2 pump NS DAILY PRN #1 mist 09/08/17 Unknown Rx ED Physical Exam - Other Other exam information: General: No limitations, patient is alert in no acute distress Head exam: Atraumatic, normocephalic Eyes exam: Normal appearance ENT: Moist mucous membrane Neck exam: Normal inspection Respiratory exam: Clear to auscultation bilateral, no wheezes, rales, crackles Cardiovascular: Normal rate and rhythm, normal heart sounds Abdomen: Soft, nondistended, and nontender, with normal bowel sounds, no rebound, or guarding Extremity: Full range of motion normal inspection no deformity Back: Normal Inspection, full range of motion, no tenderness Neurologic: Alert, oriented x2, possible right face droop noted when talking but pt will not smile on command, bilateral upper extermiity drift with equal hand continuous improvement facilitator. Bilateral leg weakness with inability to sustain any antigravity movement that is equal bilaterally. Sensation grossly intact bilaterally. b/l tremor. mild aphasia and dysarthia Psychiatric: normal affect, normal mood Skin: Warm, dry, intact ED Course Vital Signs 09/10/18 09/10/18 09/10/18 13:00 13:13 13:30 Temperature 103.3 F H Pulse Rate 112 H 111 H Respiratory 32 H 43 H Rate Blood Pressure 123/90 O2 Sat by Pulse 83 L Oximetry 09/10/18 09/10/18 09/10/18 14:00 14:30 15:00 Temperature Pulse Rate 102 H 93 H 80 Respiratory 29 H 26 H 25 H Rate Blood Pressure 126/80 125/85 129/69 O2 Sat by Pulse 80 L 86 Oximetry 09/10/18 15:22 Temperature Pulse Rate Respiratory Rate Blood Pressure O2 Sat by Pulse 95 Oximetry - Consultations Consultation #1: 09/10/18 13:28 received call back from neuro Dr Arana. Agrees pt is nonfocal and not a tpa candidate. Please see her note. - Lab Data Result diagrams: 09/10/18 13:16 09/10/18 13:16 Lab Results 09/10/18 09/10/18 09/10/18 Range/Units 13:07 13:16 13:16 WBC 8.9 (4.5-11.0) K/mm3 RBC 4.01 (3.65-5.03) M/mm3 Hgb 12.7 (11.8-15.2) gm/dl Hct 37.8 (35.5-45.6) % MCV 94 (84-94) fl MCH 32 (28-32) pg MCHC 34 (32-34) % RDW 14.6 (13.2-15.2) % Plt Count 98 L (140-440) K/mm3 Lymph % (Auto) 2.2 L (13.4-35.0) % [place] % (Auto) 8.2 H (0.0-7.3) % Eos % (Auto) 0.0 (0.0-4.3) % Baso % (Auto) 0.1 (0.0-1.8) % Lymph # 0.2 L (1.2-5.4) K/mm3 [place] # 0.7 (0.0-0.8) K/mm3 Eos # 0.0 (0.0-0.4) K/mm3 Baso # 0.0 (0.0-0.1) K/mm3 Seg Neutrophils % 89.5 H (40.0-70.0) % Seg Neutrophils # 8.0 H (1.8-7.7) K/mm3 PT 15.6 H (12.2-14.9) Sec. INR 1.17 H (0.87-1.13) APTT 31.5 (24.2-36.6) Sec. Thrombin Time 15.6 (15.1-19.6) Sec. VBG pH (7.320-7.420) Sodium (137-145) mmol/L Potassium (3.6-5.0) mmol/L Chloride (98-107) mmol/L Carbon Dioxide (22-30) mmol/L Anion Gap mmol/L BUN (9-20) mg/dL Creatinine (0.8-1.5) mg/dL Estimated GFR ml/min BUN/Creatinine Ratio % Glucose (75-100) mg/dL POC Glucose 115 H (70-105) Lactic Acid (0.7-2.0) mmol/L Calcium (8.4-10.2) mg/dL Magnesium (1.7-2.3) mg/dL Total Bilirubin (0.1-1.2) mg/dL AST (5-40) units/L ALT (7-56) units/L Alkaline Phosphatase (35-129) units/L Ammonia (25-60) umol/L Total Creatine Kinase (55-170) units/L CK-MB (CK-2) (0.0-4.0) ng/mL CK-MB (CK-2) Rel Index (0-4) Troponin T (0.00-0.029) ng/mL Total Protein (6.3-8.2) g/dL Albumin (3.9-5) g/dL Albumin/Globulin Ratio % Urine Color (Yellow) Urine Turbidity (Clear) Urine pH (5.0-7.0) Ur Specific [place] (1.003-1.030) Urine Protein (Negative) mg/dL Urine Glucose (UA) (Negative) mg/dL Urine Ketones (Negative) mg/dL Urine Blood (Negative) Urine Nitrite (Negative) Urine Bilirubin (Negative) Urine Urobilinogen (<2.0) mg/dL Ur Leukocyte Esterase (Negative) Urine WBC (Auto) (0.0-6.0) /HPF Urine RBC (Auto) (0.0-6.0) /HPF Urine Mucus /HPF Urine Opiates Screen Urine Methadone Screen Ur Barbiturates Screen Valproic Acid (50-100) ug/mL Ur Phencyclidine Scrn Ur Amphetamines Screen U Benzodiazepines Scrn Urine Cocaine Screen U Marijuana (THC) Screen Drugs of Abuse Note Plasma/Serum Alcohol (0-0.07) % 09/10/18 09/10/18 09/10/18 Range/Units 13:16 13:32 13:32 WBC (4.5-11.0) K/mm3 RBC (3.65-5.03) M/mm3 Hgb (11.8-15.2) gm/dl Hct (35.5-45.6) % MCV (84-94) fl MCH (28-32) pg MCHC (32-34) % RDW (13.2-15.2) % Plt Count (140-440) K/mm3 Lymph % (Auto) (13.4-35.0) % [place] % (Auto) (0.0-7.3) % Eos % (Auto) (0.0-4.3) % Baso % (Auto) (0.0-1.8) % Lymph # (1.2-5.4) K/mm3 [place] # (0.0-0.8) K/mm3 Eos # (0.0-0.4) K/mm3 Baso # (0.0-0.1) K/mm3 Seg Neutrophils % (40.0-70.0) % Seg Neutrophils # (1.8-7.7) K/mm3 PT (12.2-14.9) Sec. INR (0.87-1.13) APTT (24.2-36.6) Sec. Thrombin Time (15.1-19.6) Sec. VBG pH (7.320-7.420) Sodium 140 (137-145) mmol/L Potassium 4.3 (3.6-5.0) mmol/L Chloride 100.2 (98-107) mmol/L Carbon Dioxide 27 (22-30) mmol/L Anion Gap 17 mmol/L BUN 21 H (9-20) mg/dL Creatinine 1.4 (0.8-1.5) mg/dL Estimated GFR > 60 ml/min BUN/Creatinine Ratio 15 % Glucose 106 H (75-100) mg/dL POC Glucose (70-105) Lactic Acid (0.7-2.0) mmol/L Calcium 9.3 (8.4-10.2) mg/dL Magnesium 1.70 (1.7-2.3) mg/dL Total Bilirubin 0.70 (0.1-1.2) mg/dL AST 36 (5-40) units/L ALT 10 (7-56) units/L Alkaline Phosphatase 50 (35-129) units/L Ammonia 55.0 (25-60) umol/L Total Creatine Kinase 902 H (55-170) units/L CK-MB (CK-2) 5.8 H (0.0-4.0) ng/mL CK-MB (CK-2) Rel Index 0.6 (0-4) Troponin T < 0.010 (0.00-0.029) ng/mL Total Protein 8.1 (6.3-8.2) g/dL Albumin 4.0 (3.9-5) g/dL Albumin/Globulin Ratio 1.0 % Urine Color (Yellow) Urine Turbidity (Clear) Urine pH (5.0-7.0) Ur Specific [place] (1.003-1.030) Urine Protein (Negative) mg/dL Urine Glucose (UA) (Negative) mg/dL Urine Ketones (Negative) mg/dL Urine Blood (Negative) Urine Nitrite (Negative) Urine Bilirubin (Negative) Urine Urobilinogen (<2.0) mg/dL Ur Leukocyte Esterase (Negative) Urine WBC (Auto) (0.0-6.0) /HPF Urine RBC (Auto) (0.0-6.0) /HPF Urine Mucus /HPF Urine Opiates Screen Urine Methadone Screen Ur Barbiturates Screen Valproic Acid (50-100) ug/mL Ur Phencyclidine Scrn Ur Amphetamines Screen U Benzodiazepines Scrn Urine Cocaine Screen U Marijuana (THC) Screen Drugs of Abuse Note Plasma/Serum Alcohol < 0.01 (0-0.07) % 09/10/18 09/10/18 09/10/18 Range/Units 13:32 13:41 13:41 WBC (4.5-11.0) K/mm3 RBC (3.65-5.03) M/mm3 Hgb (11.8-15.2) gm/dl Hct (35.5-45.6) % MCV (84-94) fl MCH (28-32) pg MCHC (32-34) % RDW (13.2-15.2) % Plt Count (140-440) K/mm3 Lymph % (Auto) (13.4-35.0) % [place] % (Auto) (0.0-7.3) % Eos % (Auto) (0.0-4.3) % Baso % (Auto) (0.0-1.8) % Lymph # (1.2-5.4) K/mm3 [place] # (0.0-0.8) K/mm3 Eos # (0.0-0.4) K/mm3 Baso # (0.0-0.1) K/mm3 Seg Neutrophils % (40.0-70.0) % Seg Neutrophils # (1.8-7.7) K/mm3 PT (12.2-14.9) Sec. INR (0.87-1.13) APTT (24.2-36.6) Sec. Thrombin Time (15.1-19.6) Sec. VBG pH 7.438 H (7.320-7.420) Sodium (137-145) mmol/L Potassium (3.6-5.0) mmol/L Chloride (98-107) mmol/L Carbon Dioxide (22-30) mmol/L Anion Gap mmol/L BUN (9-20) mg/dL Creatinine (0.8-1.5) mg/dL Estimated GFR ml/min BUN/Creatinine Ratio % Glucose (75-100) mg/dL POC Glucose (70-105) Lactic Acid 2.00 (0.7-2.0) mmol/L Calcium (8.4-10.2) mg/dL Magnesium (1.7-2.3) mg/dL Total Bilirubin (0.1-1.2) mg/dL AST (5-40) units/L ALT (7-56) units/L Alkaline Phosphatase (35-129) units/L Ammonia (25-60) umol/L Total Creatine Kinase (55-170) units/L CK-MB (CK-2) (0.0-4.0) ng/mL CK-MB (CK-2) Rel Index (0-4) Troponin T (0.00-0.029) ng/mL Total Protein (6.3-8.2) g/dL Albumin (3.9-5) g/dL Albumin/Globulin Ratio % Urine Color (Yellow) Urine Turbidity (Clear) Urine pH (5.0-7.0) Ur Specific [place] (1.003-1.030) Urine Protein (Negative) mg/dL Urine Glucose (UA) (Negative) mg/dL Urine Ketones (Negative) mg/dL Urine Blood (Negative) Urine Nitrite (Negative) Urine Bilirubin (Negative) Urine Urobilinogen (<2.0) mg/dL Ur Leukocyte Esterase (Negative) Urine WBC (Auto) (0.0-6.0) /HPF Urine RBC (Auto) (0.0-6.0) /HPF Urine Mucus /HPF Urine Opiates Screen Urine Methadone Screen Ur Barbiturates Screen Valproic Acid 87.5 (50-100) ug/mL Ur Phencyclidine Scrn Ur Amphetamines Screen U Benzodiazepines Scrn Urine Cocaine Screen U Marijuana (THC) Screen Drugs of Abuse Note Plasma/Serum Alcohol (0-0.07) % 09/10/18 09/10/18 Range/Units 13:54 13:54 WBC (4.5-11.0) K/mm3 RBC (3.65-5.03) M/mm3 Hgb (11.8-15.2) gm/dl Hct (35.5-45.6) % MCV (84-94) fl MCH (28-32) pg MCHC (32-34) % RDW (13.2-15.2) % Plt Count (140-440) K/mm3 Lymph % (Auto) (13.4-35.0) % [place] % (Auto) (0.0-7.3) % Eos % (Auto) (0.0-4.3) % Baso % (Auto) (0.0-1.8) % Lymph # (1.2-5.4) K/mm3 [place] # (0.0-0.8) K/mm3 Eos # (0.0-0.4) K/mm3 Baso # (0.0-0.1) K/mm3 Seg Neutrophils % (40.0-70.0) % Seg Neutrophils # (1.8-7.7) K/mm3 PT (12.2-14.9) Sec. INR (0.87-1.13) APTT (24.2-36.6) Sec. Thrombin Time (15.1-19.6) Sec. VBG pH (7.320-7.420) Sodium (137-145) mmol/L Potassium (3.6-5.0) mmol/L Chloride (98-107) mmol/L Carbon Dioxide (22-30) mmol/L Anion Gap mmol/L BUN (9-20) mg/dL Creatinine (0.8-1.5) mg/dL Estimated GFR ml/min BUN/Creatinine Ratio % Glucose (75-100) mg/dL POC Glucose (70-105) Lactic Acid (0.7-2.0) mmol/L Calcium (8.4-10.2) mg/dL Magnesium (1.7-2.3) mg/dL Total Bilirubin (0.1-1.2) mg/dL AST (5-40) units/L ALT (7-56) units/L Alkaline Phosphatase (35-129) units/L Ammonia (25-60) umol/L Total Creatine Kinase (55-170) units/L CK-MB (CK-2) (0.0-4.0) ng/mL CK-MB (CK-2) Rel Index (0-4) Troponin T (0.00-0.029) ng/mL Total Protein (6.3-8.2) g/dL Albumin (3.9-5) g/dL Albumin/Globulin Ratio % Urine Color Yellow (Yellow) Urine Turbidity Clear (Clear) Urine pH 6.0 (5.0-7.0) Ur Specific [place] 1.012 (1.003-1.030) Urine Protein <15 mg/dl (Negative) mg/dL Urine Glucose (UA) Neg (Negative) mg/dL Urine Ketones Neg (Negative) mg/dL Urine Blood Lg (Negative) Urine Nitrite Neg (Negative) Urine Bilirubin Neg (Negative) Urine Urobilinogen 4.0 (<2.0) mg/dL Ur Leukocyte Esterase Neg (Negative) Urine WBC (Auto) 2.0 (0.0-6.0) /HPF Urine RBC (Auto) 6.0 (0.0-6.0) /HPF Urine Mucus Few /HPF Urine Opiates Screen Presumptive negative Urine Methadone Screen Presumptive negative Ur Barbiturates Screen Presumptive negative Valproic Acid (50-100) ug/mL Ur Phencyclidine Scrn Presumptive negative Ur Amphetamines Screen Presumptive negative U Benzodiazepines Scrn Presumptive negative Urine Cocaine Screen Presumptive negative U Marijuana (THC) Screen Presumptive negative Drugs of Abuse Note Disclamer Plasma/Serum Alcohol (0-0.07) % - EKG Data -: EKG Interpreted by [place] EKG shows normal: sinus rhythm, axis (qrs -44), QRS complexes (qrsd 85), ST-T waves (no stemi) Rate: tachycardia (107) When compared to previous EKG there are: no significant change - Radiology Data Radiology results: report reviewed CT head without acute findings Chest x-ray portable: (compared to 09/08/17) Improved right lower lobe ate lectasis versus pneumonia. Mildly worsened left lower lobe atelectasis versus pneumonia - Medical Decision Making Urine culture pending. Patient was able to urinate and did not require straight cath. pt hypoxic, abg on room air shows hypoxia. 2L o2 placed. As per med record hx of copd, pt can't confirm if he takes home o2 because he gives inconsistent answers to the same question. No signs of CO2 retention Patient treated Rocephin 1 g empirically while waiting results for source of infection, azithromycin added once cxr read as possible pneumonia Cultures pending No signs of lactic acidosis or septic shock Tylenol for fever. Hospitalist informed for admission (Dr Terry) - Differential Diagnosis encephalopathy, pneumonia, UTI, CVA, electrolyte abnormalities, COPD Critical Care Time: No Critical care attestation.: If time is entered above; I have spent that time in minutes in the direct care of this critically ill patient, excluding procedure time. ED Disposition Clinical Impression: Altered mental status, Fever, Hypoxia, Thrombocytopenia, Schizophrenia, Generalized weakness, Pneumonia Disposition: OP ADMIT IP TO THIS HOSP Is pt being admited?: Yes Condition: Stable Time of Disposition: 15:24 (Dr Terry/hosp)
--- NOTE | 2018-09-10 13:13 | Cat Scan Report ---
PROCEDURE: CT HEAD/BRAIN WO CON TECHNIQUE: A noncontrast CT of the head was performed. HISTORY: ams, unsteady gait, COMPARISON: None FINDINGS: There is moderate cerebral atrophy and moderate ischemic change in the white matter. There is no acute intracranial hemorrhage. There is no brain edema, mass effect or midline shift. Ventricular size is appropriate for brain volume. There is no abnormal extra-axial fluid collections. There is no skull fracture seen. The visualized paranasal sinuses are clear. IMPRESSION: There is no acute intracranial abnormality seen. Results relayed to Dr. Sierra on 09/10/2018 at 1:06 PM EST. This document is electronically signed by Tiffany Nicolas MD., September 10 2018 01:11:38 PM ET
[2018-09-10 13:19] LABS: Basophils % (Auto) 0.1 % (0.0-1.8); Hematocrit 37.8 % (35.5-45.6); Hemoglobin 12.7 gm/dl (11.8-15.2); Lymphocytes # (Auto) 0.2 K/mm3 (1.2-5.4); Lymphocytes % (Auto) 2.2 % (13.4-35.0); Mean Corpuscular HGB Conc 34 % (32-34); Mean Corpuscular Volume 94 fl (84-94); Monocytes # (Auto) 0.7 K/mm3 (0.0-0.8); Monocytes % (Auto) 8.2 % (0.0-7.3); Red Blood Count 4.01 M/mm3 (3.65-5.03); Red Cell Distribution Width 14.6 % (13.2-15.2)
[2018-09-10 13:20] LABS: Platelet Count 98 K/mm3 (140-440)
[2018-09-10 13:30] LABS: INR 1.17 (0.87-1.13)
[2018-09-10 13:31] LABS: Partial Thromboplastin Time 31.5 Sec. (24.2-36.6); Thrombin Time 15.6 Sec. (15.1-19.6)
[2018-09-10] MEDS ORDERED: NACL 0.9% 1000 ML IV ONE (13:34)
[2018-09-10] MEDS ORDERED: TYLENOL PO ONE (13:35)
--- NOTE | 2018-09-10 13:35 | Consultation ---
History of Present Illness Consult date: 09/10/18 Chief complaint: [facility] DATE: September 10, 2018 Impression: Altered mental status-the patient doesn't have definitively focal exam he is slow to give answers to questions and doesn't respond to questions but doesn't appear aphasic just extremely inattentive and encephalopathic. Given the nonfocal examination do not feel the patient would be an appropriate TPA candidate. He will need a toxic metabolic workup and certainly can perform stroke workup and ensure he gets aspirin until our workup is completed. Not a tpa candidate due to: Nonfocal exam did not definitively consistent with stroke Symptoms (not) consistent with LVO therefore no role for emergent neuro- intervention or advanced neuro imaging Differential Diagnosis: Toxic metabolic encephalopathy, seizure, stroke, worsening of schizophrenia/dementia 1. Cardioembolic stroke 2. Small vessel disease/lacune 3. Thromboembolic, [id number] mechanism 4. Hypercoagulable state-related infarct 5. Transient ischemic attack 6. Thrombotic mechanism, large artery disease Comments: Last known normal 12:15 [facility] contacted: 12:54 [facility] at bedside: 12:57 NIHSS assessment time: 13:00 Recommendations: -A CT had official read is negative can give him an aspirin -Admitted for toxic metabolic and stroke workup and inpatient neurology con sultation Inpatient neurology consultation Inpatient stroke evaluation as per Neurology/ Internal Medicine Discussed with ED MD Please call with questions CC altered mental status History of Present Illness Patient is a 59-year-old gentleman with dementia, schizophrenia, hepatitis C, hypertension, prior CVA with reported right-sided residual deficit. Apparently he was at his assisted living facility and they noticed at 12:15 that he just seemed more unsteady and confused. He had a fall but did not injure himself. The patient himself is encephalopathic and is a very difficult historian really can't provide any meaningful details. He appears to be on aspirin valproic acid and risperidone at baseline. He also has some mild tremors of his arms and legs. It looks like he was seen in the emergency department on the for altered mental status as well and had a CT of the head that did not show any acute changes at that time. Diagnostic: CT head without contrast does not show any acute changes Exam: 1a- LOC: Patient is very inattentive encephalopathic=1 he has to be prompted multiple times to follow any commands or answer any questions 1b- LOC questions: Answers one correclty =1 1c- LOC commands- Performs both tasks correctly- 0 2- Gaze: Normal; no gaze paresis or gaze deviation - 0 3- Visual [place]: normal, no Visual field deficit - 0 4- Facial movements: no facial palsy - 0 patient won't really cooperate with assessment won't smile 5- Upper limb motor - no drift -0 6- Lower limb motor - no drift - 0 he has no focal weakness in arms or legs although he will lift either 1 7- Limb Coordination: absent ataxia - 0 8- Sensory : no sensory loss - 0 9- Language - =1 patient doesn't seem to be aphasic but he is encephalopathic it be very difficult to completely exclude a mild aphasia but does not with the exam is consistent with 10- Speech - =1 11- Neglect / Extinction - none found -0 NIHSS score 5 Medical Decision Making: - Extensive number of diagnosis or management options are considered above. - Extensive amount of complex data reviewed. - High risk of complication and/or morbidity or mortality are associated with differential diagnostic considerations above. - There may be Uncertain outcome and increased probability of prolonged functional impairment or high probability of severe prolonged functional impairment associated with some of these differential diagnosis. Medical Data Reviewed: 1.Data reviewed include clinical labs, radiology, Medical Tests; 2.Tests results discussed w/performing or interpreting physician; 3.Obtaining/reviewing old medical records; 4.Obtaining case history from another source; 5.Independent review of image, tracing or specimen. Patient was informed the Neurology Consult would happen via telehealth (remote video) and consented to receiving care in this manner. Medications and Allergies Allergies Allergy/AdvReac Type Severity Reaction Status Date / Time banana Allergy Unknown Verified 07/30/14 18:56 fluphenazine enanthate Allergy Unknown Verified 07/30/14 18:56 [From Prolixin] fluphenazine HCl Allergy Unknown Verified 07/30/14 18:56 [From Prolixin] Home Medications Medication Instructions Recorded Confirmed Last Taken Type Divalproex ER [Depakote ER] 750 mg PO QHS 07/30/14 09/03/17 1 Day Ago History ~11/25/16 Simvastatin (Nf) [Zocor TAB] 20 mg PO QHS 02/11/16 09/03/17 1 Day Ago History ~11/25/16 Aspirin EC [Aspirin Enteric Coated 81 mg PO QDAY #30 tablet.dr 02/12/16 09/03/17 1 Day Ago Rx TAB] ~11/25/16 amLODIPine [Norvasc] 10 mg PO DAILY tablet 02/12/16 09/03/17 1 Day Ago Rx ~11/25/16 Trazodone HCl 50 mg PO QHS 09/03/17 09/03/17 Unknown History risperiDONE [Risperdal M-Tab] 0.5 mg PO QAM 09/03/17 09/03/17 Unknown History Doxycycline [Vibramycin CAP] 100 mg PO Q12HR #20 capsule 09/08/17 Unknown Rx Sodium Chloride [Saline Nasal Mist] 2 pump NS DAILY PRN #1 mist 09/08/17 Unknown Rx Results - Laboratory Findings CBC and BMP: 09/10/18 13:16 Abnormal Lab Findings: Abnormal Labs 09/10/18 09/10/18 09/10/18 13:07 13:16 13:16 Plt Count 98 L Lymph % (Auto) 2.2 L [place] % (Auto) 8.2 H Lymph # 0.2 L Seg Neutrophils % 89.5 H Seg Neutrophils # 8.0 H PT 15.6 H INR 1.17 H POC Glucose 115 H
[2018-09-10 13:37] LABS: Creatine Kinase MB 5.8 ng/mL (0.0-4.0)
[2018-09-10 13:38] LABS: Alanine Aminotransferase 10 units/L (7-56); BUN/Creatinine Ratio 15; Blood Urea Nitrogen 21 mg/dL (9-20); Calcium 9.3 mg/dL (8.4-10.2); Hemolysis Index 4
[2018-09-10] MEDS ORDERED: ROCEPHIN/NS 1 GM/50 ML 1 GM/50 ML BAG IV ONE (13:44)
[2018-09-10 14:20] LABS: Bilirubin,Urine NEG (Negative); Blood,Urine LG (Negative); Color,Urine Yellow (Yellow); Mucus,Urine FEW /HPF; Protein,Urine <15 mg/dL mg/dL (Negative)
[2018-09-10 14:29] LABS: Amphetamine Screen,Urine PRESUMPTIVE NEGATIVE; Benzodiazepines Screen,Urine PRESUMPTIVE NEGATIVE; Cannabinoid Screen,Urine PRESUMPTIVE NEGATIVE; Cocaine Screen,Urine PRESUMPTIVE NEGATIVE; Methadone Screen,Urine PRESUMPTIVE NEGATIVE; Opiate Screen,Urine PRESUMPTIVE NEGATIVE
--- NOTE | 2018-09-10 15:24 | XRay Report ---
PROCEDURE: XR CHEST 1V AP TECHNIQUE: Frontal chest radiograph. HISTORY: fever COMPARISONS: 09/08/2017. FINDINGS: Unchanged aortic calculi. The cardiomediastinal silhouette is normal. Improved groundglass opacities are noted in the right lower lobe. Mildly worsened groundglass opaciti es in the left lower lobe. Unchanged diffuse increased interstitial markings. No pleural effusion. No pneumothorax. No acute osseous abnormality. IMPRESSION: Improved right lower lobe atelectasis versus pneumonia. Mildly worsened left lower lobe atelectasis v ersus pneumonia. This document is electronically signed by Myra Edwards., September 10 2018 03:22:06 PM ET
[2018-09-10] MEDS ORDERED: ZITHROMAX 500 MG in NACL 0.9% 250ML 250 ML IV ONE (15:27)
--- NOTE | 2018-09-10 15:49 | History and Physical Report ---
History of Present Illness Chief complaint: Confused History of present illness: 67 YO Male Assisted Living Facility Resident with Schizophrenia, HCV, Dementia, HTN, CVA with RHP, COPD presents to ED for evaluation. Pt is confused and has tangential thinking and is unable to provide detailed history. Pt history taken from ALS Staff, and ED staff. As per staff, the patient was in his usual stat of health upon waking from sleep this morning around 0830 hrs but staff became aware of a change in neurologic status at 1215 hrs. Pt was observed to have confusion, as well as unsteady gait which resulted in a fall. EMS notified, and upon arrival the patient was found to have a neurologic deficit. A code stroke was called and the patient was transported to [facility] ED. Pt seen and evaluated in ED and found to have symptoms consistent with CVA, Encephalopathy as well as RLL Pneumonia. Teleneurology consulted. Pt found not to be a candidate TPA. Pt admitted to Telemetry and initiated on CVA protocol as well as Pneumonia protocol. No further history obtainable. Past History Past Medical History: COPD, hepatitis, stroke, other (Dementia, Schizophrenia) Past Surgical History: No surgical history, Other (reviewed) Social history: single. denies: smoking, alcohol abuse, prescription drug abuse Family history: no significant family history (reviewed) Medications and Allergies Allergies Allergy/AdvReac Type Severity Reaction Status Date / Time banana Allergy Unknown Verified 07/30/14 18:56 fluphenazine enanthate Allergy Unknown Verified 07/30/14 18:56 [From Prolixin] fluphenazine HCl Allergy Unknown Verified 07/30/14 18:56 [From Prolixin] Home Medications Medication Instructions Recorded Confirmed Last Taken Type Divalproex ER [Depakote ER] 750 mg PO QHS 07/30/14 09/03/17 1 Day Ago History ~11/25/16 Simvastatin (Nf) [Zocor TAB] 20 mg PO QHS 02/11/16 09/03/17 1 Day Ago History ~11/25/16 Aspirin EC [Aspirin Enteric Coated 81 mg PO QDAY #30 tablet. 02/12/16 09/03/17 1 Day Ago Rx TAB] ~11/25/16 amLODIPine [Norvasc] 10 mg PO DAILY tablet 02/12/16 09/03/17 1 Day Ago Rx ~11/25/16 Trazodone HCl 50 mg PO QHS 09/03/17 09/03/17 Unknown History risperiDONE [Risperdal M-Tab] 0.5 mg PO QAM 09/03/17 09/03/17 Unknown History Doxycycline [Vibramycin CAP] 100 mg PO Q12HR #20 capsule 09/08/17 Unknown Rx Sodium Chloride [Saline Nasal Mist] 2 pump NS DAILY PRN #1 mist 09/08/17 Unknown Rx Active Meds: Active Medications Azithromycin 500 mg/ Sodium (Chloride) 250 mls @ 250 mls/hr IV ONCE ONE Stop: 09/10/18 16:26 Review of Systems ROS unobtainable: due to mental status Exam - Constitutional Vitals: Temp Pulse Resp BP Pulse Ox 103.3 F H 80 25 H 129/69 95 09/10/18 13:00 09/10/18 15:00 09/10/18 15:00 09/10/18 15:00 09/10/18 15:22 General appearance: Present: mild distress - EENT Eyes: Present: PERRL, miosis ENT: hearing intact, clear oral mucosa - Neck Neck: Present: supple, normal ROM - Respiratory Respiratory effort: normal Respiratory: bilateral: diminished - Cardiovascular Heart Sounds: Present: S1 & S2. Absent: rub, click - Extremities Extremities: pulses symmetrical, No edema Peripheral Pulses: within normal limits - Abdominal General gastrointestinal: Present: soft, non-tender, non-distended, normal bowel sounds Male genitourinary: Present: normal - Integumentary Integumentary: Present: clear, warm, dry - Musculoskeletal Musculoskeletal: right sided weakness, left sided weakness - Psychiatric Psychiatric: no appropriate mood/affect, no intact judgment & insight, no memory intact - Neurologic Neurologic: CNII-XII intact, focal deficits, moves all extremities, no gait normal Results - Labs CBC & Chem 7: 09/10/18 13:16 09/10/18 13:16 Labs: Abnormal lab results 09/10/18 09/10/18 09/10/18 Range/Units 13:07 13:16 13:16 Plt Count 98 L (140-440) K/mm3 Lymph % (Auto) 2.2 L (13.4-35.0) % [place] % (Auto) 8.2 H (0.0-7.3) % Lymph # 0.2 L (1.2-5.4) K/mm3 Seg Neutrophils % 89.5 H (40.0-70.0) % Seg Neutrophils # 8.0 H (1.8-7.7) K/mm3 PT 15.6 H (12.2-14.9) Sec. INR 1.17 H (0.87-1.13) VBG pH (7.320-7.420) BUN (9-20) mg/dL Glucose (75-100) mg/dL POC Glucose 115 H (70-105) Total Creatine Kinase (55-170) units/L CK-MB (CK-2) (0.0-4.0) ng/mL 09/10/18 09/10/18 Range/Units 13:16 13:41 Plt Count (140-440) K/mm3 Lymph % (Auto) (13.4-35.0) % [place] % (Auto) (0.0-7.3) % Lymph # (1.2-5.4) K/mm3 Seg Neutrophils % (40.0-70.0) % Seg Neutrophils # (1.8-7.7) K/mm3 PT (12.2-14.9) Sec. INR (0.87-1.13) VBG pH 7.438 H (7.320-7.420) BUN 21 H (9-20) mg/dL Glucose 106 H (75-100) mg/dL POC Glucose (70-105) Total Creatine Kinase 902 H (55-170) units/L CK-MB (CK-2) 5.8 H (0.0-4.0) ng/mL Assessment and Plan - Patient Problems (1) CVA (cerebral vascular accident) Status: Suspected Qualifiers: Precerebral and cerebral artery: middle cerebral artery Laterality of affected vessel: right Plan to address problem: CVA Protocol: Admit to telemetry, CT head, MRI Brain, MRA Brain, Echo, Carotid Doppler, Antiplatelet therapy, lipid panel, PT/OT/ Speech therapy, Neurology consulted. (2) Pneumonia Status: Acute Qualifiers: Laterality: right Lung location: lower lobe of lung Plan to address problem: Pneumonia protocol: Chest x ray, IV antibiotic therapy, blood cultures, supplemental oxygen, nebulizer therapy, pulse oximetry, incentive spirometry (3) Encephalopathy Status: Acute Plan to address problem: CT Head, neuro checks, aspiration precaution, seizure precautions, thyroid panel, (4) Dementia Status: Acute Qualifiers: Dementia type: vascular dementia Dementia behavioral disturbance: with behavioral disturbance Qualified Code(s): F01.51 - Vascular dementia with behavioral disturbance Plan to address problem: CT head, neuro checks, supportive care, (5) COPD (chronic obstructive pulmonary disease) Status: Acute Qualifiers: COPD type: chronic bronchitis Plan to address problem: Supplemental oxygen, nebulizer therapy, supportive care, treat pneumonia (6) DVT prophylaxis Status: Acute Plan to address problem: SCD to BLE while in bed. Prophylactic lovenox
[2018-09-10] MEDS ORDERED: TYLENOL PO PRN (15:52)
[2018-09-10] MEDS ORDERED: DULCOLAX PR PRN (15:52)
[2018-09-10] MEDS ORDERED: ZOFRAN IV PRN (15:52)
[2018-09-10] MEDS ORDERED: REGLAN PO PRN (15:52)
[2018-09-10] MEDS ORDERED: MILK OF MAGNESIA PO PRN (15:52)
[2018-09-10] MEDS ORDERED: PHENERGAN PR PRN (15:52)
[2018-09-10] MEDS ORDERED: SODIUM CHLORIDE FLUSH SYRINGE 10 ML IV PRN (15:52)
[2018-09-10] MEDS ORDERED: [UNRECOGNIZED DRUG - OTHER] NS PRN (15:56)
[2018-09-10] MEDS ORDERED: SODIUM CHLORIDE NS PRN (15:56)
[2018-09-10] MEDS ORDERED: DEEP SEA NS PRN (16:16)
[2018-09-10] MEDS ORDERED: LEVAQUIN 750MG/150ML 750 MG/150 ML BAG IV SCH (17:00)
--- NOTE | 2018-09-10 18:05 | Vascular Lab Report ---
PROCEDURE: VL CAROTID DUPLEX BILAT TECHNIQUE: Duplex Doppler ultrasound of the common, internal and external carotid arteries and the v ertebral arteries was performed bilaterally. Jones scale imaging, velocity spectral waveform analysis, and color flow Doppler were employed. HISTORY: stroke COMPARISONS: None . Note: Measurement of carotid stenosis is based on flow velocity values that correlate with the [place] Symptomatic Carotid Endarterectomy Trial (NASCET) based stenosis criteria using the internal carotid artery diameter as the denominator for stenosis calculation. FINDINGS: RIGHT carotid artery: Velocities: ICA PSV: 99 cm/sec ICA End diastolic: 27 cm/sec CCA PSV: 91 cm/sec IC/CC ratio: 1.1 Plaque/color flow: Heterogeneous partially calcified plaque visualized in the proximal end of the ri ght internal carotid artery without accelerated velocity. . RIGHT vertebral artery: Antegrade systolic and diastolic flow LEFT carotid artery: Velocities: ICA PSV: 85 cm/sec ICA End diastolic: 26 cm/sec CCA PSV: 100 cm/sec IC/CC ratio: 0.9 Plaque/color flow: Small amount of heterogeneous partially calcified plaque seen in the proximal lef t internal carotid artery. No high-grade stenosis or elevated velocity visualized. . LEFT vertebral artery: Antegrade systolic and diastolic flow IMPRESSION: There is heterogeneous calcified plaque distal end of the carotid bulbs bilaterally extending into th e origins of the internal carotid arteries, right side greater than left. By velocity measurement and visual inspection the degree of stenosis is felt to be less than 50% bilaterally. Antegrade flow seen in both vertebral arteries. This document is electronically signed by Christopher Valenzuela MD., September 10 2018 06:03:20 PM ET
[2018-09-10 18:13] LABS: Free T4 (Free Thyroxine) 0.91 ng/dL (0.76-1.46)
[2018-09-10] MEDS: LOVENOX SUB-Q SCH (22:23)
[2018-09-10] MEDS: DESYREL PO SCH (22:23)
[2018-09-11 06:12] LABS: Basophils % (Auto) 0.3 % (0.0-1.8); Eosinophils # (Auto) 0.1 K/mm3 (0.0-0.4); Eosinophils % (Auto) 0.5 % (0.0-4.3); Hematocrit 32.9 % (35.5-45.6); Hemoglobin 11.2 gm/dl (11.8-15.2); Lymphocytes # (Auto) 1.3 K/mm3 (1.2-5.4); Lymphocytes % (Auto) 13.4 % (13.4-35.0); Mean Corpuscular HGB Conc 34 % (32-34); Mean Corpuscular Volume 94 fl (84-94); Monocytes # (Auto) 0.7 K/mm3 (0.0-0.8); Monocytes % (Auto) 7.2 % (0.0-7.3); Red Blood Count 3.52 M/mm3 (3.65-5.03); Red Cell Distribution Width 14.5 % (13.2-15.2)
[2018-09-11 06:16] LABS: BUN/Creatinine Ratio 21; Blood Urea Nitrogen 19 mg/dL (9-20); Calcium 8.2 mg/dL (8.4-10.2); Chol/HDL Ratio 2.25 %; HDL Cholesterol 43 mg/dL (40-59); Hemolysis Index 10; LDL Cholesterol,Direct 49 mg/dL (50-130)
[2018-09-11 06:19] LABS: Platelet Count 93 K/mm3 (140-440)
--- NOTE | 2018-09-11 09:39 | Progress Note ---
Assessment and Plan /Possible acute CVA (cerebral vascular accident) cont CVA Protocol: Admited to telemetry, ordered CT head, MRI Brain, MRA Brain, Echo, Carotid Doppler, Antiplatelet therapy, lipid panel, PT/OT/ Speech therapy, Neurology consulted. / Pneumonia, community acquired cont IV antibiotic therapy, blood cultures, supplemental oxygen, nebulizer therapy, / Encephalopathy, metabolic vs from CVA Now at baseline / Dementia, vascular cont neuro checks, supportive care, / COPD (chronic obstructive pulmonary disease), not on exacerbation cont Supplemental oxygen as needed, nebulizer therapy, supportive care, treat pneumonia / DVT prophylaxis SCD to BLE while in bed. Prophylactic lovenox Disposition: pending MRI brain/2d echo and neuro evaluation Brief History: 67 YO Male Assisted Living Facility Resident with Schizophrenia, HCV, Dementia, HTN, CVA with RHP, COPD presents to ED for change in neurologic status, was observed to have confusion, as well as unsteady gait which resulted in a fall. EMS notified, and upon arrival the patient was found to have a neurologic deficit. A code stroke was called and the patient was transported to [facility] ED. Pt seen and evaluated in ED and found to have symptoms consistent with CVA, Encephalopathy as well as RLL Pneumonia. Teleneurology consulted. Pt found not to be a candidate TPA. Pt admitted to Telemetry and initiated on CVA protocol as well as Pneumonia protocol. Subjective Date of service: 09/11/18 Interval history: Patient seen and examined denies any chest pain s/p MRI brain today, neuro eval pending Objective - Exam Narrative Exam: General appearance: Present: mild distress - EENT Eyes: Present: PERRL, miosis ENT: hearing intact, clear oral mucosa - Neck Neck: Present: supple, normal ROM - Respiratory Respiratory effort: normal Respiratory: bilateral: diminished - Cardiovascular Heart Sounds: Present: S1 & S2. Absent: rub, click - Extremities Extremities: pulses symmetrical, No edema Peripheral Pulses: within normal limits - Abdominal General gastrointestinal: Present: soft, non-tender, non-distended, normal bowel sounds Male genitourinary: Present: normal - Integumentary Integumentary: Present: clear, warm, dry - Musculoskeletal Musculoskeletal: right sided weakness, left sided weakness - Psychiatric Psychiatric: no appropriate mood/affect, no intact judgment & insight, no memory intact - Neurologic Neurologic: CNII-XII intact, focal deficits, moves all extremities, no gait normal - Constitutional Vitals: Vital Signs - 12hr 09/11/18 09/11/18 09/11/18 01:01 01:35 06:45 Temperature 98.4 F 98.3 F Pulse Rate 51 L 62 57 L Respiratory 20 20 Rate Blood Pressure Blood Pressure 117/75 131/80 [Right] O2 Sat by Pulse 97 100 Oximetry 09/11/18 07:38 Temperature 97.8 F Pulse Rate 57 L Respiratory 14 Rate Blood Pressure 126/83 Blood Pressure [Right] O2 Sat by Pulse 100 Oximetry - Labs CBC & Chem 7: 09/11/18 04:42 09/11/18 04:42 Labs: Abnormal lab results 09/10/18 09/10/18 09/10/18 Range/Units 13:07 13:16 13:16 RBC (3.65-5.03) M/mm3 Hgb (11.8-15.2) gm/dl Hct (35.5-45.6) % Plt Count 98 L (140-440) K/mm3 Lymph % (Auto) 2.2 L (13.4-35.0) % [place] % (Auto) 8.2 H (0.0-7.3) % Lymph # 0.2 L (1.2-5.4) K/mm3 Seg Neutrophils % 89.5 H (40.0-70.0) % Seg Neutrophils # 8.0 H (1.8-7.7) K/mm3 PT 15.6 H (12.2-14.9) Sec. INR 1.17 H (0.87-1.13) POC ABG pO2 (80-105) VBG pH (7.320-7.420) BUN (9-20) mg/dL Glucose (75-100) mg/dL POC Glucose 115 H (70-105) Calcium (8.4-10.2) mg/dL Total Creatine Kinase (55-170) units/L CK-MB (CK-2) (0.0-4.0) ng/mL LDL Cholesterol Direct (50-130) mg/dL 09/10/18 09/10/18 09/10/18 Range/Units 13:16 13:41 15:21 RBC (3.65-5.03) M/mm3 Hgb (11.8-15.2) gm/dl Hct (35.5-45.6) % Plt Count (140-440) K/mm3 Lymph % (Auto) (13.4-35.0) % [place] % (Auto) (0.0-7.3) % Lymph # (1.2-5.4) K/mm3 Seg Neutrophils % (40.0-70.0) % Seg Neutrophils # (1.8-7.7) K/mm3 PT (12.2-14.9) Sec. INR (0.87-1.13) POC ABG pO2 52 L (80-105) VBG pH 7.438 H (7.320-7.420) BUN 21 H (9-20) mg/dL Glucose 106 H (75-100) mg/dL POC Glucose (70-105) Calcium (8.4-10.2) mg/dL Total Creatine Kinase 902 H (55-170) units/L CK-MB (CK-2) 5.8 H (0.0-4.0) ng/mL LDL Cholesterol Direct (50-130) mg/dL 09/11/18 09/11/18 09/11/18 Range/Units 04:42 04:42 07:43 RBC 3.52 L (3.65-5.03) M/mm3 Hgb 11.2 L (11.8-15.2) gm/dl Hct 32.9 L (35.5-45.6) % Plt Count 93 L (140-440) K/mm3 Lymph % (Auto) (13.4-35.0) % [place] % (Auto) (0.0-7.3) % Lymph # (1.2-5.4) K/mm3 Seg Neutrophils % 78.6 H (40.0-70.0) % Seg Neutrophils # 7.8 H (1.8-7.7) K/mm3 PT (12.2-14.9) Sec. INR (0.87-1.13) POC ABG pO2 (80-105) VBG pH (7.320-7.420) BUN (9-20) mg/dL Glucose (75-100) mg/dL POC Glucose 64 L (70-105) Calcium 8.2 L (8.4-10.2) mg/dL Total Creatine Kinase (55-170) units/L CK-MB (CK-2) (0.0-4.0) ng/mL LDL Cholesterol Direct 49 L (50-130) mg/dL
[2018-09-11] MEDS ORDERED: LEVAQUIN 750MG/150ML 750 MG/150 ML BAG IV SCH ×2 (10:00)
[2018-09-11] MEDS: ASPIRIN PO SCH (10:20)
[2018-09-11] MEDS: LEVAQUIN 750MG/150ML 750 MG/150 ML BAG IV SCH (10:20)
[2018-09-11] MEDS: RisperDAL PO SCH (12:57)
--- NOTE | 2018-09-11 17:38 | Magnetic Resonance Report ---
PROCEDURE: MR BRAIN WO CON TECHNIQUE: T1 and T2-weighted sagittal, axial, coronal and diffusion-weighted images of the brain we re obtained. HISTORY: stroke COMPARISONS: Head CT dated September 10, 2018. And MRI brain dated July 31, 2014 is not available for re view at the time of this dictation. FINDINGS: Visualization of fine detail on some of the sequences is limited by motion artifact. T2 signal abnormalities in the subcortical and deep white matter of the cerebral hemispheres bilatera lly most likely represent chronic postischemic demyelination/small vessel disease. There is encephalomalacia, probable chronic cortical infarct, in the left insular region. There are areas of gradient echo abnormality in portions of the cortex and subcortical white matter o f the frontal lobes bilaterally and left insular cortex and basal ganglia consistent with sequela of previous hemorrhage. There is no definite evidence of acute hemorrhage. There is no diffusion abnormality to suggest the presence of acute infarct. There is no evidence of intracranial mass or mass effect. Ventricular size is concordant with the degree of atrophy. Expected flow void is demonstrated within the major intracranial vessels. The extracranial structures and craniocervical junction are unremarkable in appearance. IMPRESSION: 1. White matter changes most likely represent chronic postischemic demyelination/small vessel disease and chronic cortical infarct left insular cortex. No evidence of acute infarct. 2. Evidence of sequela of previous intracranial hemorrhages in the frontal lobe cortex and subcortica l white matter bilaterally and left insular cortex and basal ganglia. No definite evidence of acute i ntracranial hemorrhage. This document is electronically signed by Meredith Stover MD., September 11 2018 05:36:38 PM ET
--- NOTE | 2018-09-11 17:44 | Magnetic Resonance Report ---
PROCEDURE: MR MRA/MRV HEAD WO CON TECHNIQUE: 3-D [id number] MRA of the brain with maximum intensity projection images obtained. HISTORY: stroke COMPARISONS: MRI brain also performed today FINDINGS: There is normal flow-related enhancement within the major intracranial arteries without evidence of o cclusion, hemodynamically significant stenosis or aneurysm. IMPRESSION: 1. No evidence of occlusion, hemodynamically significant stenosis or aneurysm of the major intracrani al arteries. This document is electronically signed by Meredith Stover MD., September 11 2018 05:42:27 PM ET
--- NOTE | 2018-09-11 17:52 | Progress Note ---
Assessment and Plan This is a 67 YO M with acute decompensation of previous stroke, etiology unclear. Pt 's labs are fairly unremarkable. REcommend: Continue supportive care as you are doing Pt reports taht he is close to baseline PT/OT COntinue care for any medical issues as you ar edoing Expecting pt to continue to improve back to baseline. MRI/A reviewed. Call with questions. Subjective Date of service: 09/11/18 Principal diagnosis: encephalopathy Interval history: Mr. Evans says that he is feeling better overall. Right sided strength is back to baseline. Objective - Vital Sign Vital Signs - 12hr 09/11/18 09/11/18 09/11/18 06:45 07:38 10:00 Temperature 98.3 F 97.8 F Pulse Rate 57 L 57 L Respiratory 20 14 Rate Blood Pressure 126/83 Blood Pressure 131/80 [Right] O2 Sat by Pulse 100 100 96 Oximetry 09/11/18 16:25 Temperature 97.8 F Pulse Rate 55 L Respiratory 16 Rate Blood Pressure 147/83 Blood Pressure [Right] O2 Sat by Pulse 93 Oximetry - General Apperance Constitutional: comfortable - EENT EENT: PERRL, mucous membranes dry - Respiratory Respiratory: lungs clear - Cardiovascular Cardiovascular: regular rate - Gastrointestinal Gastrointestinal: normoactive bowel sounds - Neurologic Cranial nerve examination: PERRL, EOMI, VFF, face symmetric, tongue midline Motor examination - right side: 4/5: biceps, triceps, wrist flexion, wrist extension, 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, hip flexors, knee extensors, dorsiflexion, plantarflexion Motor examination - left side: 5/5: biceps, triceps, wrist flexion, wrist extension, 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, hip flexors, knee extensors, dorsiflexion, plantarflexion Detailed sensory examination: light touch, temperature Reflexes: 1+: ankle, bicep, knee, tricep - Psychiatric Psychiatric: mood/affect appropriate - Laboratory Findings CBC and BMP: 09/11/18 04:42 09/11/18 04:42 Abnormal Lab Findings: Abnormal Labs 09/10/18 09/10/18 09/10/18 13:07 13:16 13:16 RBC Hgb Hct Plt Count 98 L Lymph % (Auto) 2.2 L [place] % (Auto) 8.2 H Lymph # 0.2 L Seg Neutrophils % 89.5 H Seg Neutrophils # 8.0 H PT 15.6 H INR 1.17 H POC ABG pO2 VBG pH BUN Glucose POC Glucose 115 H Calcium Total Creatine Kinase CK-MB (CK-2) LDL Cholesterol Direct 09/10/18 09/10/18 09/10/18 13:16 13:41 15:21 RBC Hgb Hct Plt Count Lymph % (Auto) [place] % (Auto) Lymph # Seg Neutrophils % Seg Neutrophils # PT INR POC ABG pO2 52 L VBG pH 7.438 H BUN 21 H Glucose 106 H POC Glucose Calcium Total Creatine Kinase 902 H CK-MB (CK-2) 5.8 H LDL Cholesterol Direct 09/11/18 09/11/18 09/11/18 04:42 04:42 07:43 RBC 3.52 L Hgb 11.2 L Hct 32.9 L Plt Count 93 L Lymph % (Auto) [place] % (Auto) Lymph # Seg Neutrophils % 78.6 H Seg Neutrophils # 7.8 H PT INR POC ABG pO2 VBG pH BUN Glucose POC Glucose 64 L Calcium 8.2 L Total Creatine Kinase CK-MB (CK-2) LDL Cholesterol Direct 49 L - Diagnostic Findings Additional findings: MRI Brain no acute stroke
[2018-09-11] MEDS: LOVENOX SUB-Q SCH (21:00)
[2018-09-11] MEDS: DESYREL PO SCH (21:00)
[2018-09-12] MEDS: ASPIRIN PO SCH (09:54)
[2018-09-12] MEDS: RisperDAL PO SCH (09:54)
[2018-09-12] MEDS: LEVAQUIN 750MG/150ML 750 MG/150 ML BAG IV SCH (09:55)
[2018-09-12] MEDS ORDERED: HALFPRIN EC PO SCH (10:00)
[2018-09-12] MEDS ORDERED: NORVASC PO SCH (10:00)
--- NOTE | 2018-09-12 13:06 | Discharge Summary ---
Providers - Providers Date of Admission: 09/10/18 15:52 Date of discharge: 09/12/18 Attending physician: ALETA SCOTT 09/10/18 Consult to Physician [CONS] Routine Comment: Consulting Provider: LIZZETTE GARCIA Physician Instructions: Reason For Exam: cva 09/10/18 15:52 Occupational Therapy Evaluate and Treat [CONS] Routine Comment: Reason For Exam: Neuro deficits Physical Therapy Evaluation and Treat [CONS] Routine Comment: Reason For Exam: Neuro deficits 09/10/18 15:54 Speech Therapy Evaluation and Treat [CONS] Routine Reason For Exam: swallow eval [facility] Condition: Stable Pertinent studies: Head MRI/MRA Cardiac Doppler Chest x-ray Head CT 2-D echocardiogram Hospital course: Brief History: 67 YO Male Assisted Living Facility Resident with Schizophrenia, HCV, Dementia, HTN, CVA with RHP, COPD presents to ED for change in neurologic status, was observed to have confusion, as well as unsteady gait which resulted in a fall. EMS notified, and upon arrival the patient was found to have a neurologic de ficit. A code stroke was called and the patient was transported to [facility] ED. Pt seen and evaluated in ED and found to have symptoms consistent with CVA, Encephalopathy as well as RLL Pneumonia. Teleneurology consulted. Pt found not to be a candidate TPA. Patient was admitted to Telemetry and initiated on CVA protocol as well as Pneumonia protocol. Discharge diagnosis and management; /Possible TIA managed with CVA Protocol: Admited to telemetry, ordered CT head, MRI Brain, MRA Brain, Echo, Carotid Doppler, Antiplatelet therapy, lipid panel. PT/OT/ Speech therapy, Neurology consulted. No new CVA on MRI brain / Pneumonia, community acquired treated with IV antibiotic therapy, negative blood cultures, given supplemental oxygen and nebulizer therapy as needed, / Encephalopathy, metabolic vs from CVA Now at baseline /HTN, cont on Norvasc / Dementia, vascular Monitored with frequent neuro checks, supportive care, / COPD (chronic obstructive pulmonary disease), not on exacerbation Medical history Supplemental oxygen as needed, nebulizer therapy, supportive care, treated for pneumonia / DVT prophylaxis SCD to BLE while in bed. Prophylactic lovenox Disposition: home with roller walker Physical exam; General appearance: Present: mild distress - EENT Eyes: Present: PERRL, miosis ENT: hearing intact, clear oral mucosa - Neck Neck: Present: supple, normal ROM - Respiratory Respiratory effort: normal Respiratory: bilateral: diminished - Cardiovascular Heart Sounds: Present: S1 & S2. Absent: rub, click - Extremities Extremities: pulses symmetrical, No edema Peripheral Pulses: within normal limits - Abdominal General gastrointestinal: Present: soft, non-tender, non-distended, normal bowel sounds Male genitourinary: Present: normal - Integumentary Integumentary: Present: clear, warm, dry - Musculoskeletal Musculoskeletal: right sided weakness, left sided weakness - Psychiatric Psychiatric: no appropriate mood/affect, no intact judgment & insight, no memory intact - Neurologic Neurologic: CNII-XII intact, focal deficits, moves all extremities, no gait normal Disposition: DC-01 TO HOME OR SELFCARE Time spent for discharge: 34 minutes Core Measure Documentation - Palliative Care Palliative Care/ Comfort Measures: Not Applicable - Core Measures Any of the following diagnoses?: stroke - Stroke Discharge Requirements Statin for LDL = or >70 mg/dl on DC: Yes Anticoag for atrial fib/atrial flutter: Not Applicable Antithrombotic for ischemic stroke: Yes Exam - Constitutional Vitals: Temp Pulse Resp BP Pulse Ox 98.6 F 62 16 158/99 99 09/12/18 08:23 09/12/18 09:00 09/12/18 10:00 09/12/18 08:23 09/12/18 08:23 Plan Activity: advance as tolerated Weight Bearing Status: Non-Weight Bearing Diet: low fat, low salt Durable Medical Equipment Needed Upon Discharge: Walker-Rolling Follow up with: PADMINI COELLO MD [Primary Care Provider] - 7 Days Prescriptions: levoFLOXacin [Levaquin] 750 mg PO QDAY #5 tablet
[2018-09-12 18:02] VITALS: BP 137/98
== END 2018-09-12 19:00 | disposition home or self-care (01) | DRG 70 ==
LOC: ED 12:42 → 4A 15:52
PROVIDERS: ADMIT Internal Medicine; ATTEND Internal Medicine
PROC: 4A033R1 Measurement of Arterial Saturation, Peripheral, Percutaneous Approach (ICD-10-PCS; principal; 2018-09-10)
DX: G93.41 Metabolic encephalopathy (principal); J18.1 Lobar pneumonia, unspecified organism; I69.351 Hemiplegia and hemiparesis following cerebral infarction affecting right dominant side; J44.0 Chronic obstructive pulmonary disease with (acute) lower respiratory infection; F01.51 Vascular dementia, unspecified severity, with behavioral disturbance; G45.9 Transient cerebral ischemic attack, unspecified; D69.6 Thrombocytopenia, unspecified; F20.9 Schizophrenia, unspecified; I10 Essential (primary) hypertension; Z88.8 Allergy status to other drugs, medicaments and biological substances; Z91.018 Allergy to other foods; Z79.82 Long term (current) use of aspirin; Z79.899 Other long term (current) drug therapy
CPT/HCPCS: 36415; 70450; 70544; 70551; 71045; 80048; 80053; 80061; 80164; 80307; 80320; 81001; 82140; 82550; 82553; 82803; 82805; 82962; 83735; 84439; 84443; 84484; 85025; 85610; 85670; 85730; 87040; 87086; 93005; 93010; 93306; 93880; 94760; G0378; A9270-GY; G0480; J0456; J0696; J1650; J1956; J7050

== ENCOUNTER 2019-03-07 13:34 | Emergency (ER) | payer MEDICARE ==
--- NOTE | 2019-03-07 13:50 | Emergency Department Report ---
Blank Doc - Documentation Documentation: 68-year-old male that presents with generalized weakness and pain. This initial assessment/diagnostic orders/clinical plan/treatment(s) is/are subject to change based on patient's health status, clinical progression and re- assessment by fellow clinical providers in the ED. Further treatment and workup at subsequent clinical providers discretion. Patient/guardians urged not to elope from the ED as their condition may be serious if not clinically assessed and managed. Initial orders include: 1- Patient sent to MAIN ED for further evaluation and treatment. 2- labs 3- UA
[2019-03-07 14:53] LABS: Basophils % (Auto) 0.2 % (0.0-1.8); Eosinophils % (Auto) 0.2 % (0.0-4.3); Hematocrit 37.2 % (35.5-45.6); Hemoglobin 12.6 gm/dl (11.8-15.2); Lymphocytes % (Auto) 11.8 % (13.4-35.0); Mean Corpuscular HGB Conc 34 % (32-34); Mean Corpuscular Volume 94 fl (84-94); Monocytes # (Auto) 0.6 K/mm3 (0.0-0.8); Monocytes % (Auto) 7.4 % (0.0-7.3); Platelet Count 125 K/mm3 (140-440); Red Blood Count 3.95 M/mm3 (3.65-5.03); Red Cell Distribution Width 14.8 % (13.2-15.2)
[2019-03-07 15:12] LABS: BUN/Creatinine Ratio 12; Blood Urea Nitrogen 16 mg/dL (9-20); Calcium 8.8 mg/dL (8.4-10.2); Hemolysis Index 2
[2019-03-07 15:17] LABS: Alanine Aminotransferase < 5 units/L (7-56)
[2019-03-07] MEDS ORDERED: PROVENTIL IH ONE (15:22)
[2019-03-07] MEDS ORDERED: DELTASONE PO ONE (15:22)
--- NOTE | 2019-03-07 15:27 | Emergency Department Report ---
Minor Respiratory - HPI Chief Complaint: Pain General Stated Complaint: COLD Time Seen by Provider: 03/07/19 13:48 Duration: 5 Days Pain Location: Chest Minor Respiratory: Yes Able to Tolerate Fluids, Yes Cough, No Rhinorrhea, No Sore Throat, No Ear Pain, No Sick Contacts, No Hemoptysis, No Chest Pain, No Shortness of Breath, No Fever Other History: 68 YO MALE COMES TO ER FROM PERSONAL CORRECTION WITH CO COUGH FOR 5 DAYS AND CHRONIC R LEG AND L HAND PAIN. NO FALL OR TRAUMA. PT STATES HE HAS A COLD. NO FEVER. NO HYPOTENSION OR TACHYCARDIA. FRAIL MALE BUT AMBULATORY ON ARRIVAL TO ER; THE CORRECTION DROPPED HIM OFF AND LEFT HIM. NO CP. NO SOB. SMOKER. DENIES ETOH. HOME MEDS. GABAPENTIN. STATIN. ASA. RISPERIDONE. TRAZADONE. DIVALPROEX. NORVASC. INCRUSE ELLIPTA. VENTOLIN ED Review of Systems ROS: Stated complaint: WEAKNESS Other details as noted in HPI Comment: All other systems reviewed and negative ED Past Medical Hx - Past Medical History Previous Medical History?: Yes Hx Hypertension: Yes Hx CVA: Yes Hx Heart Attack/AMI: No Hx Congestive Heart Failure: No Hx Diabetes: No Hx Deep Vein Thrombosis: No Hx Pulmonary Embolism: No Hx GERD: No Hx Liver Disease: No Hx Renal Disease: No Hx of Cancer: No Hx Sickle Cell Disease: No Hx Arthritis: Yes Hx Headaches / Migraines: No Hx Seizures: No Hx Kidney Stones: No Hx Psychiatric Treatment: Yes (Schizophrenia) Hx Asthma: No Hx COPD: Yes Hx Tuberculosis: No Hx Dementia: Yes Hx HIV: No Additional medical history: HPLD. CHRONIC PAIN - Surgical History Past Surgical History?: Yes Additional Surgical History: Unknown - Family History Family history: no significant - Social History Smoking Status: Current Every Day Smoker Substance Use Type: None - Medications Home Medications: Home Medications Medication Instructions Recorded Confirmed Last Taken Type Divalproex ER [Depakote ER] 750 mg PO QHS 07/30/14 09/11/18 1 Day Ago History ~11/25/16 Simvastatin (Nf) [Zocor TAB] 20 mg PO QHS 02/11/16 09/11/18 1 Day Ago History ~11/25/16 Aspirin EC [Halfprin EC] 81 mg PO QDAY #30 tablet. 02/12/16 09/11/18 1 Day Ago Rx ~11/25/16 amLODIPine [Norvasc] 10 mg PO DAILY tablet 02/12/16 09/11/18 1 Day Ago Rx ~11/25/16 Trazodone HCl 50 mg PO QHS 09/03/17 09/11/18 Unknown History risperiDONE [Risperdal M-Tab] 0.5 mg PO QAM 09/03/17 09/11/18 09/11/18 History Albuterol Sulfate [Proair 90 mcg IH QID PRN #1 aer.pow.ba 03/07/19 Unknown Rx Respiclick] Azithromycin [Zithromax Z-NICOLÁS] 250 mg PO DAILY #6 tablet 03/07/19 Unknown Rx Benzonatate [Tessalon Perles] 100 mg PO Q12H PRN #20 capsule 03/07/19 Unknown Rx Cetirizine HCl [ZyrTEC] 10 mg PO DAILY #30 capsule 03/07/19 Unknown Rx Fluticasone [Flonase] 1 spray NS QDAY #1 bottle 03/07/19 Unknown Rx Ibuprofen [Motrin] 800 mg PO Q8HR PRN #30 tablet 03/07/19 Unknown Rx predniSONE [Deltasone] 20 mg PO DAILY #5 tablet 03/07/19 Unknown Rx Minor Respiratory Exam - Exam General: Vital signs noted. No distress. Alert and acting appropriately. HEENT: Yes Moist Mucous Membranes, No Pharyngeal Erythema, No Pharyngeal Exudates, No Rhinorrhea, No Conjuctival Injection, No Frontal Tenderness, No Maxillary Tenderness Ear: Left TM Bulge, Neither TM Erythema, Neither EAC Pain, Neither EAC Discharge Neck: Yes Supple, No Adenopathy Lungs: Yes Good Air Exchange, Yes Wheezes, Yes Ronchi (CLEAR WITH COUGH), No Stridor, No Cough, No Labored Respirations, No Retractions, No Use of Accessory Muscles, No Other Abnormal Lung Sounds Heart: Yes Regular, No Murmur Abdomen: Yes Normal Bowel Sounds, No Tenderness, No Peritoneal Signs Skin: No Rash, No Edema Neurologic: Alert and oriented, no deficits. Musculoskeletal: Unremarkable. ED Course Vital Signs 03/07/19 13:39 Temperature 98.8 F Pulse Rate 75 Respiratory 16 Rate Blood Pressure 148/85 O2 Sat by Pulse 88 Oximetry ED Medical Decision Making - Lab Data Result diagrams: 03/07/19 14:28 03/07/19 14:28 - Radiology Data Radiology results: report reviewed, image reviewed - Medical Decision Making Labs 03/07/19 03/07/19 14:28 14:28 WBC 8.7 RBC 3.95 Hgb 12.6 Hct 37.2 MCV 94 MCH 32 MCHC 34 RDW 14.8 Plt Count 125 L Lymph % (Auto) 11.8 L [place] % (Auto) 7.4 H Eos % (Auto) 0.2 Baso % (Auto) 0.2 Lymph # 1.0 L [place] # 0.6 Eos # 0.0 Baso # 0.0 Seg Neutrophils % 80.4 H Seg Neutrophils # 7.0 Sodium 142 Potassium 3.6 Chloride 101.3 Carbon Dioxide 28 Anion Gap 16 BUN 16 Creatinine 1.3 Estimated GFR > 60 BUN/Creatinine Ratio 12 Glucose 119 H Calcium 8.8 Total Bilirubin 0.70 AST 16 ALT < 5 L Alkaline Phosphatase 50 Total Protein 7.5 Albumin 4.0 Albumin/Globulin Ratio 1.1 Vital Signs 03/07/19 13:39 Temperature 98.8 F Pulse Rate 75 Respiratory 16 Rate Blood Pressure 148/85 O2 Sat by Pulse 88 Oximetry LABS NOTED XRAY NOTED DUONEB/STEROIDS IN ER DC HOME WITH DC PLAN OF CARE. PT AMBULATORY. 1730 SITTING ON EDGE OF BED EATING DINNER IN NAD. - Differential Diagnosis RO PNA/URTI Critical care attestation.: If time is entered above; I have spent that time in minutes in the direct care of this critically ill patient, excluding procedure time. ED Disposition Clinical Impression: COPD (chronic obstructive pulmonary disease), Chronic pain, COPD with acute bronchitis Disposition: DC-01 TO HOME OR SELFCARE Is pt being admited?: No Does the pt Need Aspirin: No Condition: Stable Instructions: Acute Bronchitis (ED), Chronic Obstructive Pulmonary Disease (ED) Additional Instructions: CONTINUE HOME MEDS MEDS ORDERED TODAY TYLENOL OR MOTRIN FOR PAIN FOLLOW UP WITH PCP FOR YOUR CHRONIC PAIN REFERRALS BELOW Prescriptions: predniSONE [Deltasone] 20 mg PO DAILY #5 tablet Fluticasone [Flonase] 1 spray NS QDAY #1 bottle Ibuprofen [Motrin] 800 mg PO Q8HR PRN #30 tablet PRN Reason: Pain, Moderate (4-6) Albuterol Sulfate [Proair Respiclick] 90 mcg IH QID PRN #1 aer.pow.ba PRN Reason: Wheezing Benzonatate [Tessalon Perles] 100 mg PO Q12H PRN #20 capsule PRN Reason: Cough Azithromycin [Zithromax Z-NICOLÁS] 250 mg PO DAILY #6 tablet Cetirizine HCl [ZyrTEC] 10 mg PO DAILY #30 capsule Referrals: PRIMARY CARE,MD [Primary Care Provider] - 3-5 Days [facility] [Outside] - 3-5 Days Time of Disposition: 16:52
--- NOTE | 2019-03-07 15:59 | XRay Report ---
CHEST 2 VIEWS INDICATION: COUGH. COMPARISON: 09/10/2018 FINDINGS: Support devices: None. Heart: Within normal limits. Pulmonary vasculature: Large central pulmonary arteries but otherwise normal vasculature. Lungs/pleura: The lungs are hyperexpanded and hyperlucent. No airspace disease or pleural effusion. P reviously identified interstitial opacities in the left lower lobe are no longer identified. No pneum othorax. Additional findings: None. IMPRESSION: COPD and no acute change. No CHF or pneumonia. A left lower lobe interstitial pneumonia has resolved. Signer Name: Nii Siu MD Signed: 03/07/2019 3:55 PM Workstation Name: [id number]
[2019-03-07] MEDS ORDERED: ROBITUSSIN AC PO ONE (16:22)
[2019-03-07 17:17] VITALS: BP 124/74
== END 2019-03-07 19:50 | disposition home or self-care (01) ==
LOC: ED 13:34
DX: J44.9 Chronic obstructive pulmonary disease, unspecified (principal); M79.604 Pain in right leg; M79.642 Pain in left hand; G89.29 Other chronic pain; I10 Essential (primary) hypertension; M19.90 Unspecified osteoarthritis, unspecified site; F20.9 Schizophrenia, unspecified; F03.90 Unspecified dementia, unspecified severity, without behavioral disturbance, psychotic disturbance, mood disturbance, and anxiety; F17.200 Nicotine dependence, unspecified, uncomplicated; Z79.899 Other long term (current) drug therapy; Z86.73 Personal history of transient ischemic attack (TIA), and cerebral infarction without residual deficits; Z91.018 Allergy to other foods; Z88.8 Allergy status to other drugs, medicaments and biological substances
CPT/HCPCS: 36415; 71046; 80053; 85025; 94640; 99284; J7512; 94644